=== PATIENT | female | born 1975 | race African-American/Black ===

== ENCOUNTER → 2020-02-04 | Outpatient (REF) | payer MEDICAID ==
[~2020-02-04] MED LIST: DOCU5LIQ PO; OXYC1TAB23 AD; OXYC1TAB23 PO; OXYC30TA4 PO; PERC5TAB8 OR; SENO8.6T9 PO; VICO5TAB OR
[2020-02-05 14:07] LABS: HE4 55.8 pmol/L (0.0-63.6)
== END ==
LOC: M PLALAB 10:05
PROVIDERS: ATTEND Obstetrics & Gynecology
DX: N83.201 Unspecified ovarian cyst, right side (principal)

== ENCOUNTER → 2020-02-07 | Outpatient (CLI) | payer MEDICAID ==
--- NOTE | 2020-02-07 10:27 | REP ---
REASON: Possible right-sided ovarian cyst. The latest prior for comparison is in 05/02/2014. Transvesical and transvaginal imaging was performed. The uterus measures 9.1 x 4.4 x 4.6 cm. The parenchymal echo pattern is unchanged from the prior exam. The endometrial echo complex is within normal limits with a maximal thickness of 6 mm. There is small amount of fluid in the endometrial cavity. The right ovary measures 3.4 x 2.4 x 2.8 cm. In the right adnexa, there is a 7 x 7.1 x 8.1 cm sized complex cystic structure. The right ovarian RI is 0.79. Left ovary measures 2.1 x 1.3 x 1.8 cm and is within normal limits. There is a moderate amount of free fluid from the cul-de-sac. IMPRESSION: There is a large complex cystic structure in the right adnexa. Followup with MRI is suggested.
== END ==
LOC: M WHC 08:25
PROVIDERS: ATTEND Obstetrics & Gynecology
DX: N83.201 Unspecified ovarian cyst, right side (principal)

== ENCOUNTER → 2020-02-07 | Outpatient (CLI) | payer MEDICAID, OTHER ==
[~2020-02-07] MED LIST changes: +GASTROGRAFIN SOLUTION 30ML (Q9963) As Ordered ONE; +ISOVUE-370 76% 100ML VIAL As Ordered ONE
[2020-02-07 14:31] LABS: BLOOD UREA NITROGEN 12 MG/DL (7-18); GLOMERULAR FILTRATION RATE > 60.0 (>58)
[2020-02-07 14:38] LABS: HEMOGLOBIN 9.9 g/dl (12.0-15.5); MEAN CORPUSCULAR HEMOGLOBIN 24.3 pg (27.0-33.0); MEAN CORPUSCULAR VOLUME 81.1 fl (80.0-96.0); PLATELET COUNT, AUTOMATED 351 10^3/uL (150-450); RED BLOOD COUNT 4.07 10^6/uL (4.00-5.40); WHITE BLOOD COUNT 5.7 10^3/uL (4.0-10.0)
--- NOTE | 2020-02-07 23:02 | REP ---
CT ABDOMEN AND PELVIS WITH ORAL CONTRAST: CT abdomen and pelvis performed following oral contrast administration. No IV contrast was administered. Sagittal and coronal reconstruction images are performed. Comparison made with prior study of 08/30/2012. The visualized lung bases are clear. The liver is grossly unremarkable. A subcentimeter gallstone is seen in the dependent portion of the gallbladder without evidence of gallbladder wall thickening or edema. Spleen is normal in size with no gross abnormality. Adrenal glands are normal. The pancreas is grossly unremarkable. A punctate intrarenal calculus is seen in the right kidney. Small extrarenal pelvis is noted on the right, unchanged since the prior CT exam. The kidneys are otherwise grossly unremarkable with no hydronephrosis. There is no abdominal aortic aneurysm. There is no adenopathy. There is no free air. I see no bowel wall thickening. Scattered diverticula are seen of the left colon. The appendix is normal. Postsurgical changes are seen in the anterior abdominal wall with no current evidence of abdominal wall hernia. In the pelvis, a large cyst is noted of the right ovary measuring 7.7 cm in diameter. There is mild adjacent free fluid. The left ovary is unremarkable. The uterus is deviated to the left of midline. The urinary bladder is mildly distended and grossly unremarkable. IMPRESSION: Subcentimeter gallstone in the gallbladder without gallbladder wall thickening. Punctate calculus right kidney. No hydronephrosis. Cystic structure right ovary 7.7 cm in maximum diameter with mild adjacent free fluid. Recommend pelvic ultrasound to further evaluate. Scattered diverticula of the left colon. No definite bowel inflammation or wall thickening. Postsurgical changes anterior abdominal wall with no current evidence of abdominal wall hernia. Electronically Signed by Ruben Sheth MD 02/08/2020 09:31 A
== END ==
LOC: M RAD 12:42
PROVIDERS: ATTEND Surgery
DX: R10.11 Right upper quadrant pain (principal); K92.2 Gastrointestinal hemorrhage, unspecified; R10.84 Generalized abdominal pain; K80.20 Calculus of gallbladder without cholecystitis without obstruction; N20.0 Calculus of kidney; K57.90 Diverticulosis of intestine, part unspecified, without perforation or abscess without bleeding; N83.201 Unspecified ovarian cyst, right side
CPT/HCPCS: 74176; 82565; 84520; 85027; Q9963; Q9967

== ENCOUNTER → 2020-04-16 | Outpatient (REF) | payer OTHER, MEDICAID ==
[~2020-04-16] MED LIST changes: +CLAR10CA3 PO; +DERM1TAB2 PO; -GASTROGRAFIN SOLUTION 30ML (Q9963) As Ordered ONE; -ISOVUE-370 76% 100ML VIAL As Ordered ONE; +METF850T4 PO; +OMEP40CA97 PO; +TOPI50TA9 PO
[2020-04-16 12:40] LABS: BASO % 0.4 % (0.0-1.0); EOS # 0.1 10^3/uL (0.0-0.5); EOS % 2.2 % (0.0-3.0); HEMATOCRIT 35.7 % (36.0-47.0); HEMOGLOBIN 10.4 g/dl (12.0-15.5); LYMPH # 2.6 10^3/uL (1.5-5.0); LYMPH % 49.3 % (24.0-44.0); MEAN CORPUSCULAR HEMOGLOBIN 24.7 pg (27.0-33.0); MEAN CORPUSCULAR HGB CONC 29.1 g/dl (32.0-36.5); MEAN CORPUSCULAR VOLUME 84.8 fl (80.0-96.0); MONO # 0.5 10^3/uL (0.0-0.8); MONO % 9.3 % (0.0-5.0); NEUTROPHILS # 2.1 10^3/uL (1.5-8.5); NEUTROPHILS % 38.6 % (36.0-66.0); PLATELET COUNT, AUTOMATED 333 10^3/uL (150-450); RED BLOOD COUNT 4.21 10^6/uL (4.00-5.40); WHITE BLOOD COUNT 5.4 10^3/uL (4.0-10.0)
[2020-04-16 12:42] LABS: ALBUMIN 3.5 GM/DL (3.2-5.2); BILIRUBIN,TOTAL 0.2 MG/DL (0.2-1.0); CALCIUM LEVEL 8.9 MG/DL (8.5-10.1); CHOLESTEROL RISK RATIO 3.264 (<5); CREATININE FOR GFR 1.3 MG/DL (0.55-1.30); FREE T4 1.1 NG/DL (0.76-1.46); GLOMERULAR FILTRATION RATE 47.8 (>58); POTASSIUM SERUM 3.9 MEQ/L (3.5-5.1); THYROID STIMULATING HORMONE 1.12 uIU/ML (0.358-3.740); TOTAL PROTEIN 7.5 GM/DL (6.4-8.2)
[2020-04-16 12:44] LABS: TOTAL 25(OH) VITAMIN D 24.5 NG/ML (30.0-100.0)
[2020-04-16 13:24] LABS: HEMOGLOBIN A1c 5.6 %
== END ==
LOC: M LAB REF 11:35
PROVIDERS: ATTEND Physician Assistant
DX: N83.209 Unspecified ovarian cyst, unspecified side (principal); Z86.2 Personal history of diseases of the blood and blood-forming organs and certain disorders involving the immune mechanism; E11.9 Type 2 diabetes mellitus without complications; E55.9 Vitamin D deficiency, unspecified; Z13.220 Encounter for screening for lipoid disorders; K43.2 Incisional hernia without obstruction or gangrene

== ENCOUNTER → 2020-04-17 | Outpatient (REF) | payer OTHER, MEDICAID ==
[2020-04-18 11:20] LABS: MAU/CREAT RATIO 33.2 MCG/MG (0.0-30.0)
== END ==
LOC: M LAB REF 10:08
PROVIDERS: ATTEND Physician Assistant
DX: E11.9 Type 2 diabetes mellitus without complications (principal); Z86.2 Personal history of diseases of the blood and blood-forming organs and certain disorders involving the immune mechanism; N83.209 Unspecified ovarian cyst, unspecified side; E55.9 Vitamin D deficiency, unspecified; Z13.220 Encounter for screening for lipoid disorders; K43.2 Incisional hernia without obstruction or gangrene

== ENCOUNTER 2020-05-23 10:55 | Day surgery (SDC) | payer MEDICAID ==
[~2020-05-23 10:55] MED LIST changes: +ceFAZolin 2 GM/D5W 50 ML IV BAG (J0690 PER 500MG) As Ordered ONE; +ceFAZolin 2 GM/D5W 50 ML IV BAG (J0690 PER 500MG) ONE
[2020-05-23] MEDS ORDERED: dexameTHASONE 4 MG/ML 1ML VIAL (J1100 PER 1MG) As Ordered ONE (14:17)
[2020-05-23] MEDS ORDERED: propofoL 200 MG/20 ML VIAL As Ordered ONE (14:17)
[2020-05-23] MEDS ORDERED: ONDANSETRON 4MG/2ML VIAL As Ordered ONE ×2 (14:17→18:48)
[2020-05-23] MEDS ORDERED: fentaNYL 250 MCG/5 ML INJECTION (J3010) As Ordered ONE (14:17)
[2020-05-23] MEDS ORDERED: ROCURONIUM BROMIDE 50 MG/5 ML VIAL As Ordered ONE ×2 (14:17→17:05)
[2020-05-23] MEDS ORDERED: MIDAZOLAM INJ 2MG/2ML VIAL (J2250 PER 1MG) As Ordered ONE (14:17)
[2020-05-23] MEDS ORDERED: LIDOCAINE 2% 100MG/5ML SDV (FOR ANES.) As Ordered ONE ×2 (14:21→15:35)
[2020-05-23] MEDS ORDERED: BUPIVACAINE HCL 0.25% 30ML VIAL As Ordered ONE (15:30)
[2020-05-23] MEDS ORDERED: KETOROLAC 60MG 2ML VIAL As Ordered ONE (18:10)
[2020-05-23] MEDS ORDERED: ACETAMINOPHEN 1000MG 100ML IV BTL (OFIRMEV) (J0131 PER 10MG) As Ordered ONE (18:10)
[2020-05-23] MEDS ORDERED: SUGAMMADEX SODIUM 500 MG/5 ML VIAL (BRIDION) As Ordered ONE (18:13)
[2020-05-23] MEDS ORDERED: HYDROMORPHONE HCL 0.5 MG/ 0.5 ML SYRINGE (J1170 PER 1) As Ordered ONE (18:47)
[2020-05-23] MEDS ORDERED: ONDANSETRON 4MG/2ML VIAL ONE (18:47)
[2020-05-23] MEDS ORDERED: HYDROMORPHONE HCL 0.5 MG/ 0.5 ML SYRINGE (J1170 PER 1) ONE (18:47)
[2020-05-23] MEDS ORDERED: fentaNYL 100 MCG/2 ML INJECTION (J3010) ONE (19:05)
[2020-05-23] MEDS ORDERED: fentaNYL 100 MCG/2 ML INJECTION (J3010) As Ordered ONE (19:05)
[2020-05-23] MEDS ORDERED: oxyCODONE 5MG TAB As Ordered ONE ×2 (19:20→19:46)
[2020-05-23] MEDS ORDERED: oxyCODONE 5MG TAB ONE ×2 (19:20→19:46)
[2020-05-23] MEDS ORDERED: MORPHINE 4 MG/ML 1ML VIAL/SYRINGE (J2270) As Ordered ONE (21:59)
[2020-05-23] MEDS ORDERED: PERCOCET 5MG/325MG TAB As Ordered ONE (23:55)
[2020-05-24] MEDS ORDERED: KETOROLAC 30 MG/ML 1ML VIAL As Ordered ONE ×2 (00:56→09:45)
[2020-05-24] MEDS ORDERED: PERCOCET 5MG/325MG TAB As Ordered ONE ×2 (03:51→09:45)
[2020-05-24] MEDS ORDERED: MORPHINE 4 MG/ML 1ML VIAL/SYRINGE (J2270) As Ordered ONE (06:39)
--- NOTE | 2020-07-17 10:53 | RO ---
DATE OF PROCEDURE: 05/23/2020 PREOPERATIVE DIAGNOSIS: Symptomatic right ovarian cyst. POSTOPERATIVE DIAGNOSIS: 1 Symptomatic right ovarian cyst. 2 Extensive intra-abdominal intraperitoneal adhesive disease PROCEDURE PERFORMED: 1. Aborted laparoscopic entry. 2. Exploratory laparotomy, mini laparotomy via mini Pfannenstiel incision. 3. Right ovarian cystectomy. 4. Extensive lysis of adhesions. SURGEON: Leonidas Salter MD INDIAN TRADER: Jorge Jefferson (Central role in tissue site exposure and assistance with ovarian cystectomy) ANESTHESIA: General endotracheal SPECIMEN SENT TO PATHOLOGY: Right ovarian cyst. ESTIMATED BLOOD LOSS: 100 ml FLUIDS REPLACED 1200 ml lactate Ringers DRAINS: Bajwa catheter. URINE OUTPUT: 250 ml COMPLICATIONS: None. PREOPERATIVE ANTIBIOTICS: Ancef 2 gm IV times one secondary school registrar to the OR. INDICATIONS: The patient is complaining of persistent right lower quadrant pain. She has had a persistent large right ovarian cyst for several months. She is seeking surgical treatment. She is aware of the surgical risks given her surgical history. The patient was counseled and consented on the risks, benefits, indications and alternatives of procedure and informed consent was obtained. She was taken to the operating room with an IV running and placed on the operating table in the dorsal supine position. General anesthesia was administered and the airway secured without any difficulty. She was then placed in the low lithotomy position. She was prepared and draped in the normal sterile fashion. A time- out was performed for protocol. Bajwa catheter was placed under sterile conditions. A sterile speculum was placed for good visualization of the cervix. The anterior lip of the cervix was grasp with single-tooth tenaculum and downward traction was applied. The cervix was then sequentially dilated using dilators up to #20. The uterine manipulator was then placed without any difficulty. The single-tooth tenaculum was removed. A glove search was performed and attention was turned to abdomen. An umbilical incision was made with the 11 blade. The Veress needle was placed through this incision. Difficulty was obtained maintaining an adequate opening pressure and opening pressure was high. Upon entry of the Veress needle, there was an easy flow of normal saline, a positive drop test and negative return on aspiration. However, with insufflation, the pressures only stayed below 10 mmHg for a matter of seconds. The Veress needle was removed. The abdomen did seem tympanic and so attempt at entry into the intraabdominal cavity with the laparoscopic cannula/trocar was attempted. However, upon entry into the abdomen, extensive adhesions were noted. No injury to bowel or major vessels was apparent, but my vision of the pelvis was significantly impaired given the omental adhesions. Therefore, the trocar was removed. Attempts were made in the left upper quadrant at [facility] in similar fashion, Veress needle was placed with positive checks to confirm intraperitoneal placement. The insufflation had an opening pressure of less than 10. The Veress needle was removed. The laparoscopic cannula/trocar was inserted under direct visualization into the intraperitoneal cavity and again also encountered extensive amount of adhesive disease. With the left upper quadrant entry, there was no apparent bowel injury or major vessel injury and the cannula was noted to be very shallow within the peritoneal cavity. Given the lack of visualization of the pelvis, the cannula was removed. The final attempt was made just below the right upper quadrant. The Veress needle was placed. Proper checks were performed and confirmed intraperitoneal placement, the opening pressure was less than 10. The Veress needle was removed. The cannula was inserted through this incision for one final attempt at achieving laparoscopic entry and the same difficulties were encountered. I could not see pass the omental adhesions. Given that an extensive amount of adhesiolysis would have to be performed laparoscopically, I decided to abort laparoscopic attempt and notify the OR staff. The cannula was removed. The gas was released from the abdomen. The 5 mm skin incisions were closed with 4-0 Monocryl in subcuticular fashion and re-enforced with Dermabond. Once the new counts were completed for the new instrument set, the procedure proceeded in the open fashion. A mini Pfannenstiel incision was made with a 10 blade. This was dissected down to the level of the rectus sheath fascia. The rectus sheath fascia was incised at the midline and the rectus sheath fascia was dissected with Patel scissors on each side. The Elisabeth clamps were used to grasp the superior aspect of the fascial incision and upper traction was applied and the rectus muscle bellies were dissected off the fascia. In similar fashion, the inferior aspect of the fascial incision was grasped with Elisabeth clamps and elevated. The fascia was dissected off the muscle belly. The peritoneum was identified. However, extensive amount of bowel adhesions were noted to the anterior abdominal wall. However, I was able to bluntly dissect my way down to the pelvis to identify the right ovarian cyst. The right ovaria cyst was well demarcated, smooth walled with very filmy adhesions around the side wall at the bowel and the uterus. Once this right ovarian cyst was mobilized, it was brought to the opening of the incision. The Metzenbaum scissors were used to dissect off the cyst wall off the ovary. The remaining ovary was noted to be hemostatic. The right fallopian tube was noted to be bleeding. It was clamped and suture ligated to assure hemostasis. No other bleeding was noted. In the process of dissecting the ovarian cyst off of the ovary, there was a large feeding vessel from the peritoneum. This was also clamped and suture ligated. It was unclear where the origin of this vessel was from, but I assume it was an aberrant branch from the ovarian vessels, most likely off the IP ligament. The right ureter was noted to be well away from this area. The entire pelvis was suctioned irrigated. Actually hemostasis was noted. The decision was made to conclude the procedure. The sponge, needle and instrument counts were correct. The fascia was then closed with 0 Vicryl in running fashion. Subcutaneous layer was irrigated and then re- approximated with 3-0 Vicryl in running fashion. The skin incision was closed with 4-0 Monocryl in subcuticular fashion and Optifoam dressing was placed over this incision. The attention was turned back to the pelvis and the Bajwa catheter was removed. The uterine manipulator was removed. Minimal vaginal bleeding was noted. Sponge, needle and instrument counts were correct once again and the patient tolerated the entire procedure very well. She was transferred to PACU in good and stable condition. RICK
[2020-07-20 08:34] LABS: HEMATOCRIT 37.1 % (36.0-47.0); HEMOGLOBIN 10.9 g/dl (12.0-15.5); MEAN CORPUSCULAR HEMOGLOBIN 24.8 pg (27.0-33.0); MEAN CORPUSCULAR HGB CONC 29.4 g/dl (32.0-36.5); MEAN CORPUSCULAR VOLUME 84.5 fl (80.0-96.0); PLATELET COUNT, AUTOMATED 294 10^3/uL (150-450); RED BLOOD COUNT 4.39 10^6/uL (4.00-5.40); WHITE BLOOD COUNT 4.7 10^3/uL (4.0-10.0)
== END 2020-05-24 10:30 | disposition home or self-care (01) ==
LOC: M SDC 10:55
PROVIDERS: ATTEND Obstetrics & Gynecology
DX: N83.291 Other ovarian cyst, right side (principal); Z53.31 Laparoscopic surgical procedure converted to open procedure; K66.0 Peritoneal adhesions (postprocedural) (postinfection); E11.9 Type 2 diabetes mellitus without complications; K21.9 Gastro-esophageal reflux disease without esophagitis; G43.909 Migraine, unspecified, not intractable, without status migrainosus; Z79.84 Long term (current) use of oral hypoglycemic drugs; Z79.899 Other long term (current) drug therapy
CPT/HCPCS: 58925; 84703; 85027; 86850; 86900; 86901; 88305; J0131; J0690; J1100; J1170; J1885; J2250; J2270; J2405; J3010

== ENCOUNTER → 2020-06-18 | Outpatient (CLI) | payer OTHER, MEDICAID ==
[~2020-06-18] MED LIST changes: -ceFAZolin 2 GM/D5W 50 ML IV BAG (J0690 PER 500MG) As Ordered ONE; -ceFAZolin 2 GM/D5W 50 ML IV BAG (J0690 PER 500MG) ONE
== END ==
LOC: M PAIN 09:31
PROVIDERS: ATTEND Nurse Practitioner Family
DX: R10.9 Unspecified abdominal pain (principal)

== ENCOUNTER → 2020-07-23 | Outpatient (REF) | payer OTHER, MEDICAID ==
[2020-07-23 17:31] LABS: HEMOGLOBIN A1c 5.9 %
== END ==
LOC: M LAB REF 16:25
PROVIDERS: ATTEND Physician Assistant
DX: N18.30 Chronic kidney disease, stage 3 unspecified (principal); Z86.2 Personal history of diseases of the blood and blood-forming organs and certain disorders involving the immune mechanism; E11.9 Type 2 diabetes mellitus without complications

== ENCOUNTER → 2020-07-29 | Outpatient (REF) | payer OTHER, MEDICAID ==
[2020-07-29 17:44] LABS: BLOOD UREA NITROGEN 11 MG/DL (7-18); CALCIUM LEVEL 8.8 MG/DL (8.5-10.1); CARBON DIOXIDE LEVEL 28 MEQ/L (21-32); CHLORIDE LEVEL 107 MEQ/L (98-107); CREATININE FOR GFR 1.17 MG/DL (0.55-1.30); GLOMERULAR FILTRATION RATE > 60.0 (>58); GLUCOSE, FASTING 93 MG/DL (70-100); POTASSIUM SERUM 4.4 MEQ/L (3.5-5.1); SODIUM LEVEL 141 MEQ/L (136-145)
== END ==
LOC: M LAB REF 16:28
PROVIDERS: ATTEND Physician Assistant
DX: N18.30 Chronic kidney disease, stage 3 unspecified (principal)

== ENCOUNTER → 2020-08-08 | Outpatient (CLI) | payer OTHER ==
--- NOTE | 2020-08-08 11:01 | REP ---
INDICATION: R10.2 PELVIC AND PERINEAL PAIN. COMPARISON: Comparison pelvic sonography February 07, 2020.. TECHNIQUE: Transabdominal and transvaginal scanning were performed. FINDINGS: Uterine dimensions are normal at 9.2 by 5.2 x 5.6 cm. Endometrial echo is 1.2 cm thick and centrally placed. A mild amount free fluid is seen in the cul-de-sac. Visualized bladder helms are smooth. The right ovary has dimensions of 3.5 x 1.9 x 2.3 cm. It's Doppler flow is normal with a resistive index of 0.53. There are 2 small follicle cysts in the right ovary measuring 1.1 and 1.8 cm in greatest diameter respectively. The left ovary dimensions are normal as well at 2.7 x 1.5 x 1.6 cm. It's Doppler flow was normal with resistive index of 0.41. IMPRESSION: There is free fluid in the cul-de-sac and right adnexal region. Otherwise negative pelvic sonography.. <Electronically signed by Baljeet Armstrong > 08/08/20 [id number]
== END ==
LOC: M WHC 09:03
PROVIDERS: ATTEND Obstetrics & Gynecology
DX: R10.2 Pelvic and perineal pain (principal)

== ENCOUNTER → 2020-08-18 | Outpatient (CLI) | payer OTHER ==
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
== END ==
LOC: M PAIN 09:15
PROVIDERS: ATTEND Nurse Practitioner Family
DX: D36.15 Benign neoplasm of peripheral nerves and autonomic nervous system of abdomen (principal); E11.9 Type 2 diabetes mellitus without complications; K21.9 Gastro-esophageal reflux disease without esophagitis; Z79.84 Long term (current) use of oral hypoglycemic drugs; Z79.899 Other long term (current) drug therapy; J30.2 Other seasonal allergic rhinitis

== ENCOUNTER → 2020-09-06 | Outpatient (CLI) | payer OTHER | LOC: M LABSMTC 09:27 | PROVIDERS: ATTEND Anesthesiology | DX: Z20.828 Contact with and (suspected) exposure to other viral communicable diseases (principal) ==

== ENCOUNTER → 2020-09-10 | Outpatient (CLI) | payer OTHER ==
[~2020-09-10] MED LIST changes: +BUPIVACAINE HCL 0.25% 10ML VIAL As Ordered ONE; +BUPIVACAINE HCL 0.25% 30ML VIAL As Ordered ONE; +TRIAMCINOLONE ACETONIDE SUSP 40 MG/ML VIAL (J3301) As Ordered ONE; +diazePAM 5MG TABLET As Ordered ONE; +oxyCODONE 5MG TAB As Ordered ONE
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
== END ==
LOC: M PAIN 14:00
PROVIDERS: ATTEND Anesthesiology
DX: D36.15 Benign neoplasm of peripheral nerves and autonomic nervous system of abdomen (principal); E11.9 Type 2 diabetes mellitus without complications; K21.9 Gastro-esophageal reflux disease without esophagitis; J30.9 Allergic rhinitis, unspecified; Z79.84 Long term (current) use of oral hypoglycemic drugs; Z79.899 Other long term (current) drug therapy
CPT/HCPCS: 11900; J3301

== ENCOUNTER → 2020-09-18 | Outpatient (REF) | payer OTHER ==
[~2020-09-18] MED LIST changes: -BUPIVACAINE HCL 0.25% 10ML VIAL As Ordered ONE; -BUPIVACAINE HCL 0.25% 30ML VIAL As Ordered ONE; -TRIAMCINOLONE ACETONIDE SUSP 40 MG/ML VIAL (J3301) As Ordered ONE; -diazePAM 5MG TABLET As Ordered ONE; -oxyCODONE 5MG TAB As Ordered ONE
[2020-09-18 16:29] LABS: CALCIUM LEVEL 9.1 MG/DL (8.5-10.1); CREATININE FOR GFR 1.36 MG/DL (0.55-1.30); GLOMERULAR FILTRATION RATE 45.2 (>58); POTASSIUM SERUM 4.4 MEQ/L (3.5-5.1)
== END ==
LOC: M LAB REF 15:34
PROVIDERS: ATTEND Physician Assistant
DX: I10 Essential (primary) hypertension (principal)

== ENCOUNTER → 2020-09-23 | Outpatient (CLI) | payer OTHER ==
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
== END ==
LOC: M PAIN 14:30
PROVIDERS: ATTEND Nurse Practitioner Family
DX: G89.29 Other chronic pain (principal); D36.15 Benign neoplasm of peripheral nerves and autonomic nervous system of abdomen; E11.9 Type 2 diabetes mellitus without complications; K21.9 Gastro-esophageal reflux disease without esophagitis; J30.2 Other seasonal allergic rhinitis; Z79.84 Long term (current) use of oral hypoglycemic drugs; Z79.899 Other long term (current) drug therapy

== ENCOUNTER → 2020-12-03 | Outpatient (REF) | payer OTHER ==
[2020-12-03 17:25] LABS: BASO % 0.1 % (0.0-1.0); HEMATOCRIT 33.7 % (36.0-47.0); HEMOGLOBIN 10.1 g/dl (12.0-15.5); LYMPH # 1.7 10^3/uL (1.5-5.0); LYMPH % 19.3 % (24.0-44.0); MEAN CORPUSCULAR HEMOGLOBIN 25.8 pg (27.0-33.0); MEAN CORPUSCULAR VOLUME 86.2 fl (80.0-96.0); MONO # 0.7 10^3/uL (0.0-0.8); MONO % 7.9 % (2.0-8.0); NEUTROPHILS # 6.4 10^3/uL (1.5-8.5); NEUTROPHILS % 72.2 % (36.0-66.0); PLATELET COUNT, AUTOMATED 314 10^3/uL (150-450); RED BLOOD COUNT 3.91 10^6/uL (4.00-5.40); WHITE BLOOD COUNT 8.8 10^3/uL (4.0-10.0)
[2020-12-03 17:52] LABS: ALBUMIN 3.4 GM/DL (3.2-5.2); BILIRUBIN,TOTAL 0.1 MG/DL (0.2-1.0); CHOLESTEROL RISK RATIO 2.426 (<5); CREATININE FOR GFR 1.74 MG/DL (0.55-1.30); THYROID STIMULATING HORMONE 0.232 uIU/ML (0.358-3.740); TOTAL PROTEIN 6.9 GM/DL (6.4-8.2)
[2020-12-03 17:53] LABS: TOTAL 25(OH) VITAMIN D 24.3 NG/ML (30.0-100.0)
[2020-12-03 19:19] LABS: HEMOGLOBIN A1c 5.8 %
== END ==
LOC: M LAB REF 16:03
PROVIDERS: ATTEND Physician Assistant
DX: R73.03 Prediabetes (principal); E66.9 Obesity, unspecified; N18.30 Chronic kidney disease, stage 3 unspecified; E55.9 Vitamin D deficiency, unspecified

== ENCOUNTER → 2020-12-04 | Outpatient (CLI) | payer OTHER ==
--- NOTE | 2020-12-09 00:58 | ECWPNPC ---
PATIENT NAME: JAIRO RYAN : 1975 GENDER: FEMALE VISIT DATE: 12/04/2020 DISCHARGE DATE: 12/04/20 1050 VISIT LOCKED DATE TIME: PHYSICIAN: JONAS KEMP RESOURCE: JONAS KEMP REASON FOR APPOINTMENT 1. ABDOMINAL SCAR NEUROMA/DID GOOD WITH FIRST SCAR NEUROMA INJECTION IN SEPTEMBER HISTORY OF PRESENT ILLNESS DEPRESSION SCREENING: PHQ-2 (2015 EDITION) LITTLE INTEREST OR PLEASURE IN DOING THINGS?NOT AT ALL FEELING DOWN, DEPRESSED, OR HOPELESS?NOT AT ALL TOTAL SCORE0 GENERAL: HERE FOR F/U OF ABDOMINAL PAIN/SCAR NEUROMA-.PAIN HAS RETURNED.RESPONDS WELL TO SCAR NEUROMA INJECTIONS. FALL RISK SCREENING: SCREENING :NO FALLS REPORTED IN THE LAST YEAR PAIN SCREENING: PATIENT HAS A COMPLAINT OF ACUTE OR CHRONIC PAIN :YES LOCATION OF PAIN:ABDOMEN INTENSITY OF PAIN (SCALE OF 1 TO 10):7 WHAT DOES YOUR PAIN FEEL LIKE:BURNING, SHARP DURATION:CONTINOUS, CONSTANT, ALL DAY PAIN IS INCREASED BY:ACTIVITIES PAIN IS DECREASED BY:SITTING NURSING NOTE: -. PAIN CENTER INTAKE QUESTIONS: DO YOU HAVE A HISTORY OF MRSA? :NO DO YOU TAKE A BLOOD THINNERS? :NO DO YOU HAVE ANY BLEEDING DISORDERS? :NO ANY NEW NUMBNESS OR WEAKNESS IN YOUR LEGS OR ARMS? :NO ANY PACEMAKER,DEFIBRILLATOR, OR DORSAL COLUMN STIMULATOR? :NO DO YOU HAVE ANY RASHES OR OPEN SORES? :NO ARE YOU ALLERGIC TO IV DYE? :NO ARE YOU DIABETIC? :YES ANY NEW PROBLEMS WITH YOUR MEDICATIONS? :NO HAVE YOU RECEIVED A VACCINE IN THE PAST 30 DAYS? :NO DO YOU PLAN TO RECEIVE A VACCINE IN THE NEXT 21 DAYS? :NO DO YOU NEED ANY PRESCRIPTION? :NO DO YOU TAKE ANY IMMUNOSUPPRESSIVE MEDICATIONS? :YES METHLPREDNISOLONE IS THERE A CHANCE YOU COULD BE ? :NO ARE YOU BREAST FEEDING? :NO CURRENT MEDICATIONS TAKING VITAMIN D (CHOLECALCIFEROL) 50 MCG (2000 UT) CAPSULE 02737 UNITS ORALLY ONCE A DAY TAKING METFORMIN HCL 850 MG TABLET 1 TABLET WITH A MEAL ORALLY TWICE A DAY TAKING PRILOSEC 10 MG PACKET 40MG ORALLY TAKING TOPAMAX 50 MG TABLET 1 TABLET ORALLY BID TAKING ZYRTEC ALLERGY 10 MG TABLET 1 TABLET ORALLY ONCE A DAY TAKING FAMOTIDINE 20 MG TABLET 1 TABLET AT BEDTIME NEEDED ORALLY TWICE A DAY TAKING METHYLPREDNISOLONE 4 MG TABLET 1 TABLET WITH FOOD OR MILK ORALLY EVERY 12 HRS NOT-TAKING LORATADINE 10 MG TABLET 20MG ORALLY ONCE A DAY NOT-TAKING IBUPROFEN 800 MG TABLET 1 TABLET WITH FOOD OR MILK NEEDED ORALLY THREE TIMES A DAY NOT-TAKING EXCEDRIN MIGRAINE 250-250-65 MG TABLET 1 TAB ORALLY PRN MEDICATION LIST REVIEWED AND RECONCILED WITH THE PATIENT PAST MEDICAL HISTORY DIABETES MELLITUS GERD ALLERGIES SEASONAL - ONSET DATE 02/04/2020 LISINOPRIL: FACE SAWLLOW SOCIAL HISTORY GENERAL: TOBACCO USE ARE YOU A:NONSMOKER LATEX QUESTIONNAIRE LATEX ALLERGY : HAVE YOU EVER DEVELOPED ANY TYPE OF REACTION AFTER HANDLING LATEX PRODUCTS SUCH RUBBER GLOVES, CONDOMS, DIAPHRAGMS, BALLOONS, SOCKS, OR UNDERWEAR?NO LATEX ALLERGY : HAVE YOU EVER DEVELOPED ANY TYPE OF REACTION DURING OR AFTER DENTAL APPOINTMENT, VAGINAL/RECTAL EXAMINATION, SURGICAL PROCEDURE, OR ANY OTHER EXPOSURE?NO LATEX RISK : HAVE YOU EVER HAD ANY DIFFICULTY BREATHING OR HIVES AFTER EATING OR HANDLING ANY FRUITS, OR VEGETABLES; SUCH KIWI, BANANAS, STONE FRUITS, OR CHESTNUTSNO LATEX RISK : DO YOU HAVE A PREVIOUS PERSONAL HISTORY OF MORE THAN NINE SURGERIES, SPINA BIFIDA, OR REPEATED CATHERIZATIONS? NO LATEX RISK : ARE YOU FREQUENTLY EXPOSED TO LATEX PRODUCTS IN YOUR OCCUPATION?NO DATE ASKED : 12/04/2020 ALCOHOL USE: NO. ALCOHOL SCREENING DID YOU HAVE A DRINK CONTAINING ALCOHOL IN THE PAST YEAR?NO POINTS0 INTERPRETATIONNEGATIVE RECREATIONAL DRUG USE DRUG USE?NO CAFFEINE CAFFEINE USE?YES HOW OFTEN AND HOW MUCH? 3/DAY SIKH SIKH NO FAITH BELIEFS THAT WOULD IMPACT HEALTH CARE. LANGUAGE LANGUAGES SPOKEN:MAORI LEARNING BARRIERS / SPECIAL NEEDS CHANGE FROM LAST VISIT?NO BARRIERS TO LEARNING?NO HEARING IMPAIRED?NO VISION IMPAIRED?NO COGNITIVELY IMPAIRED?NO READINESS TO LEARN?YES LEARNING PREFERENCES?NO LEARNING CAPABILITIES PRESENT?YES EMOTIONAL BARRIERS?NO SPECIAL DEVICES?NO CONTINUOUS MINING MACHINE OPERATOR NEEDED?NO - HAS THE PATIENT BEEN EDUCATED REGARDING HIS/HER PLAN OF CARE?YES HAS THE PATIENT BEEN EDUCATED REGARDING PAIN, THE RISK FOR PAIN, THE IMPORTANCE OF EFFECTIVE PAIN MANAGEMENT, AND THE PAIN ASSESSMENT PROCESS?YES ADVANCE DIRECTIVE ADVANCE DIRECTIVE DISCUSSED WITH PATIENT:YES SISTER-CHEIKH STEEN REVIEW OF SYSTEMS CONSTITUTIONAL: ANY RECENT FEVER NO . CHILLS NO . WEIGHT CHANGE OF UNKNOWN REASONS NO . GASTROENTEROLOGY: NEW UNEXPLAINABLE CHANGES IN BOWEL CONTROL NO . CONSTIPATION NO . GENITOURINARY: ANY NEW CHANGE IN BLADDER CONTROL? NO . NEUROLOGY: NEW ONSET DIZZINESS OR NEUROLOGICAL CHANGES NOT MENTIONED NO . NEW NUMBNESS OR PAIN PATTERNS NOT MENTIONED AND PERTINENT TO TODAY'S VISIT NO . CARDIOLOGY: NEW CHEST PRESSURE NO . PATIENT DENIES NO . RESPIRATORY: UNEXPLAINABLE COUGH NO . NEW SHORTNESS OF BREATH NO . VITAL SIGNS WT 222 LBS, HT 71 IN, BMI 30.96 INDEX, BP 179/105 MM HG, HR 62 /MIN, RR 18 /MIN, TEMP 97 F, OXYGEN SAT % 100%, SAFE IN ENV? (Y/N) YES, NA INITIALS OH 10:31T.KAYCEE PEREZ. EXAMINATION GENERAL EXAMINATION: GENERALNO ACUTE DISTRESS, WELL NOURISHED AND HYDRATED. PSYCHAPPROPRIATE MOOD AND AFFECT . LUNGS:CLEAR TO AUSCULTATION BILATERALLY, NO WHEEZES, RHONCHI, RALES. HEART:NO MURMURS, REGULAR RATE AND RHYTHM. ABDOMEN:BASICALLY TENDER WITH LIGHT PALPATION OVER ENTIRE ABDOMEN. CHIEF AREA OF PAIN IS MIDLINE INCISIONAL WITH LIGHT TOUCH. PATIENT COMPLAINS OF INTERMITTENT ELECTRICAL SENSATION WITH LIGHT TOUCH OVER ABDOMINAL MIDLINE INCISION.. 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 PROCEDURE CODES FA211 ESTABILISHED PATIENT [facility] FACILITY CHARGE DISPOSITION & COMMUNICATION FOLLOW UP POST PROCEDURE (REASON: SCAR NEUROMA INJECTIONS ABDOMEN) ELECTRONICALLY SIGNED BY XENA HELTON ON 12/08/2020 AT 01:36 PM EST DISCLAIMER : THIS IS A VISIT SUMMARY EXTRACTED FROM THE [email or web address] CHART. IT IS NOT A COPY OF THE [email or web address] PROGRESS NOTE. RICK
== END ==
LOC: M PAIN 10:00
PROVIDERS: ATTEND Nurse Practitioner Family
DX: D36.15 Benign neoplasm of peripheral nerves and autonomic nervous system of abdomen (principal); E11.9 Type 2 diabetes mellitus without complications; K21.9 Gastro-esophageal reflux disease without esophagitis; J30.2 Other seasonal allergic rhinitis; Z88.8 Allergy status to other drugs, medicaments and biological substances; Z79.84 Long term (current) use of oral hypoglycemic drugs; Z79.899 Other long term (current) drug therapy

== ENCOUNTER → 2020-12-06 | Outpatient (CLI) | payer OTHER | LOC: M LABSMTC 08:32 | PROVIDERS: ATTEND Anesthesiology | DX: Z11.52 Encounter for screening for COVID-19 (principal) ==

== ENCOUNTER → 2020-12-11 | Outpatient (CLI) | payer OTHER ==
[~2020-12-11] MED LIST changes: +BUPIVACAINE HCL 0.25% 30ML VIAL As Ordered ONE; +LIDOCAINE 1% SDV 30ML VIAL As Ordered ONE; +TRIAMCINOLONE ACETONIDE SUSP 40 MG/ML VIAL (J3301) As Ordered ONE; +diazePAM 5MG TABLET As Ordered ONE; +oxyCODONE 5MG TAB As Ordered ONE
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
== END ==
LOC: M PAIN 13:40
PROVIDERS: ATTEND Anesthesiology
DX: D36.15 Benign neoplasm of peripheral nerves and autonomic nervous system of abdomen (principal); E11.9 Type 2 diabetes mellitus without complications; K21.9 Gastro-esophageal reflux disease without esophagitis; J30.2 Other seasonal allergic rhinitis; Z79.899 Other long term (current) drug therapy; Z88.8 Allergy status to other drugs, medicaments and biological substances
CPT/HCPCS: 11900; J3301

== ENCOUNTER → 2021-02-13 | Outpatient (CLI) | payer OTHER ==
[~2021-02-13] MED LIST changes: -BUPIVACAINE HCL 0.25% 30ML VIAL As Ordered ONE; -LIDOCAINE 1% SDV 30ML VIAL As Ordered ONE; -TRIAMCINOLONE ACETONIDE SUSP 40 MG/ML VIAL (J3301) As Ordered ONE; -diazePAM 5MG TABLET As Ordered ONE; -oxyCODONE 5MG TAB As Ordered ONE
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
== END ==
LOC: M PAIN 14:00
PROVIDERS: ATTEND Anesthesiology
DX: R10.9 Unspecified abdominal pain (principal); G89.29 Other chronic pain; E11.9 Type 2 diabetes mellitus without complications; K21.9 Gastro-esophageal reflux disease without esophagitis; Z88.8 Allergy status to other drugs, medicaments and biological substances; Z79.84 Long term (current) use of oral hypoglycemic drugs; Z79.899 Other long term (current) drug therapy

== ENCOUNTER → 2021-03-03 | Outpatient (CLI) | payer OTHER ==
--- NOTE | 2021-03-03 16:54 | REPVR ---
PROCEDURE INFORMATION: Exam: MR Cervical Spine Without Contrast Exam date and time: 03/03/2021 4:33 PM Age: 45 years old Clinical indication: Neck pain; Additional info: Chronic pain TECHNIQUE: Imaging protocol: Multiplanar magnetic resonance images of the cervical spine without contrast. COMPARISON: No relevant prior studies available. FINDINGS: Straightening of the cervical lordosis. Cervical vertebral body heights are intact. The dens is intact. Disc space heights are unremarkable. No abnormal marrow signal. No cord compression, expansion, or abnormal cord signal. Visualized structures of the posterior fossa are unremarkable. No significant areas of canal or foraminal narrowing. Soft tissues are unremarkable. IMPRESSION: No acute findings in the cervical spine. Electronically signed by: Iker Nielsen On 03/03/2021 16:54:41 PM
--- NOTE | 2021-03-03 16:56 | REPVR ---
PROCEDURE INFORMATION: Exam: MR Thoracic Spine Without Contrast Exam date and time: 03/03/2021 4:33 PM Age: 45 years old Clinical indication: Pain in thoracic spine; Other: Not specified; Additional info: Chronic pain TECHNIQUE: Imaging protocol: Multiplanar magnetic resonance images of the thoracic spine without contrast. COMPARISON: No relevant prior studies available. FINDINGS: Thoracic vertebral body heights are maintained. No abnormal marrow signal. Thoracic kyphosis is preserved. Thoracic disc space heights are normal. Mild facet hypertrophy at T10-T11 contributes to mild canal narrowing. No severe areas of canal narrowing. No evidence of cord compression or abnormal cord signal. Soft tissues are unremarkable. IMPRESSION: No acute findings in the thoracic spine. Electronically signed by: Iker Nielsen On 03/03/2021 16:56:20 PM
--- NOTE | 2021-03-03 16:59 | REPVR ---
PROCEDURE INFORMATION: Exam: MR Lumbar Spine Without Contrast Exam date and time: 03/03/2021 4:33 PM Age: 45 years old Clinical indication: Low back pain; Additional info: Chronic pain TECHNIQUE: Imaging protocol: Multiplanar magnetic resonance images of the lumbar spine without intravenous contrast. COMPARISON: No relevant prior studies available. FINDINGS: Limitations: Examination is limited by motion artifact. Vertebral body heights are maintained. No abnormal marrow signal. No cord compression. No abnormal cord signal. Conus medullaris terminates at the L1 level. Mild degenerative disc height loss at L4-L5 and L5-S1. Remaining disc space heights are preserved. Paravertebral soft tissues are unremarkable. L1-L2: Facet hypertrophy causes mild canal narrowing and mild bilateral foraminal narrowing. L2-L3: No significant canal or foraminal narrowing. L3-L4: No significant canal or foraminal narrowing. L4-L5: Minimal broad-based disc bulge and facet hypertrophy cause mild canal narrowing with moderate left and mild right foraminal narrowing. L5-S1: Broad-based disc bulge and facet hypertrophy cause mild canal narrowing with moderate right and moderate to severe left foraminal narrowing. Possible impingement upon the exiting left L5 nerve root. IMPRESSION: Multilevel spondylotic changes of the lumbar spine, most pronounced at L5-S1, as detailed above. Electronically signed by: Iker Nielsen On 03/03/2021 16:59:25 PM
== END ==
LOC: M PLARAD 14:07
PROVIDERS: ATTEND Anesthesiology
DX: G89.29 Other chronic pain (principal); M47.817 Spondylosis without myelopathy or radiculopathy, lumbosacral region

== ENCOUNTER → 2021-04-03 | Outpatient (CLI) | payer OTHER ==
[~2021-04-03] MED LIST changes: +OMEP40CA4 PO; -OMEP40CA97 PO
--- NOTE | 2021-04-08 02:12 | ECWPNPC ---
PATIENT NAME: JAIRO RYAN : 1975 GENDER: FEMALE VISIT DATE: 04/03/2021 DISCHARGE DATE: 04/03/21 1521 VISIT LOCKED DATE TIME: PHYSICIAN: JONAS KEMP RESOURCE: JONAS KEMP REASON FOR APPOINTMENT 1. 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 CURRENTLY BEING WORKED UP FOR DORSAL COLUMN STIMULATOR TRIAL. CONTINUES TO HAVE SEVERE 24-HOUR ABDOMINAL PAIN THAT RADIATES INTO THE BACK REGION. 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 DISCUSSED MEDICATION OPTIONS. DISCUSSED USING PERCOCET 5/325 THAT SHE HAS BEEN ON IN THE PAST THAT HAS BEEN HELPFUL WITHOUT SIDE EFFECTS. SHE IS AWARE THAT SHE WOULD NOT BE ABLE TO TAKE THIS EVERY DAY OR ON A SCHEDULED BASIS. WE DISCUSSED THE REASONS WHY WE ARE NOT RECOMMENDING NARCOTIC BE TAKEN THIS WAY TO INCLUDE TOLERANCE AND DEPENDENCY. WE ALSO DISCUSSED AT LENGTH THE RISKS ASSOCIATED WITH NARCOTIC PAIN MEDICATION USE. SHE IS ADVISED THAT SHE WOULD NOT BE ABLE TO DRIVE OR OPERATE HEAVY EQUIPMENT AFTER TAKING A NARCOTIC PAIN MEDICATION. SHE IS AWARE THAT WE ARE PRESCRIBING THIS FOR HER TO TAKE PERIODICALLY ONCE SHE IS HOME POSSIBLY AFTER WORK OR HEAVY ACTIVITY FOR SEVERE PAIN EPISODES ONLY. -. FALL RISK SCREENING: SCREENING : NO FALLS REPORTED IN THE LAST YEAR. PAIN SCREENING: PATIENT HAS A COMPLAINT OF ACUTE OR CHRONIC PAIN :YES LOCATION OF PAIN:ABDOMEN INTENSITY OF PAIN (SCALE OF 1 TO 10):8 WHAT DOES YOUR PAIN FEEL LIKE:BURNING, SHARP DURATION:CONTINOUS, CONSTANT, ALL DAY PAIN IS INCREASED BY:ACTIVITIES, PROLONGED STANDING, OTHERS EVERTHING PAIN IS DECREASED BY:USE OF PAIN MEDICATIONS, SITTING NURSING NOTE: -. PAIN CENTER INTAKE QUESTIONS: DO YOU HAVE A HISTORY OF MRSA? :NO DO YOU TAKE A BLOOD THINNERS? :NO DO YOU HAVE ANY BLEEDING DISORDERS? :NO ANY NEW NUMBNESS OR WEAKNESS IN YOUR LEGS OR ARMS? :NO ANY PACEMAKER,DEFIBRILLATOR, OR DORSAL COLUMN STIMULATOR? :NO DO YOU HAVE ANY RASHES OR OPEN SORES? :NO ARE YOU ALLERGIC TO IV DYE? :NO ARE YOU DIABETIC? :YES ANY NEW PROBLEMS WITH YOUR MEDICATIONS? :NO HAVE YOU RECEIVED A VACCINE IN THE PAST 30 DAYS? :NO DO YOU PLAN TO RECEIVE A VACCINE IN THE NEXT 21 DAYS? :NO DO YOU NEED ANY PRESCRIPTION? :NO DO YOU TAKE ANY IMMUNOSUPPRESSIVE MEDICATIONS? :NO IS THERE A CHANCE YOU COULD BE ? :NO ARE YOU BREAST FEEDING? :NO CURRENT MEDICATIONS TAKING VITAMIN D (CHOLECALCIFEROL) 50 MCG (1999 UT) CAPSULE 05952 UNITS ORALLY ONCE A DAY TAKING TOPAMAX 50 MG TABLET 1 TABLET ORALLY BID TAKING ZYRTEC ALLERGY 10 MG TABLET 1 TABLET ORALLY ONCE A DAY TAKING PRILOSEC OTC 20 MG TABLET DELAYED RELEASE AL ORALLY TWICE DAILY TAKING NORVASC 5MG TABLET ORAL DAILY TAKING METFORMIN HCL 850 MG TABLET 1 TABLET WITH A MEAL ORALLY TWICE A DAY, NOTES: 800 MG BID NOT-TAKING PRILOSEC 10 MG PACKET 40MG ORALLY NOT-TAKING FAMOTIDINE 20 MG TABLET 1 TABLET AT BEDTIME NEEDED ORALLY TWICE A DAY NOT-TAKING METHYLPREDNISOLONE 4 MG TABLET 1 TABLET WITH FOOD OR MILK ORALLY EVERY 12 HRS NOT-TAKING LORATADINE 10 MG TABLET 20MG ORALLY ONCE A DAY NOT-TAKING IBUPROFEN 800 MG TABLET 1 TABLET WITH FOOD OR MILK NEEDED ORALLY THREE TIMES A DAY NOT-TAKING EXCEDRIN MIGRAINE 250-250-65 MG TABLET 1 TAB ORALLY PRN MEDICATION LIST REVIEWED AND RECONCILED WITH THE PATIENT PAST MEDICAL HISTORY DIABETES MELLITUS GERD CHRONIC PAIN ALLERGIES SEASONAL - ONSET DATE 02/04/2020 LISINOPRIL: FACE SAWLLOW SOCIAL HISTORY GENERAL: TOBACCO USE ARE YOU A:NONSMOKER LATEX QUESTIONNAIRE LATEX ALLERGY : HAVE YOU EVER DEVELOPED ANY TYPE OF REACTION AFTER HANDLING LATEX PRODUCTS SUCH RUBBER GLOVES, CONDOMS, DIAPHRAGMS, BALLOONS, SOCKS, OR UNDERWEAR?NO LATEX ALLERGY : HAVE YOU EVER DEVELOPED ANY TYPE OF REACTION DURING OR AFTER DENTAL APPOINTMENT, VAGINAL/RECTAL EXAMINATION, SURGICAL PROCEDURE, OR ANY OTHER EXPOSURE?NO LATEX RISK : HAVE YOU EVER HAD ANY DIFFICULTY BREATHING OR HIVES AFTER EATING OR HANDLING ANY FRUITS, OR VEGETABLES; SUCH KIWI, BANANAS, STONE FRUITS, OR CHESTNUTSNO LATEX RISK : DO YOU HAVE A PREVIOUS PERSONAL HISTORY OF MORE THAN NINE SURGERIES, SPINA BIFIDA, OR REPEATED CATHERIZATIONS? NO LATEX RISK : ARE YOU FREQUENTLY EXPOSED TO LATEX PRODUCTS IN YOUR OCCUPATION?NO DATE ASKED : 04/03/2021 ALCOHOL USE: NO. ALCOHOL SCREENING DID YOU HAVE A DRINK CONTAINING ALCOHOL IN THE PAST YEAR?NO POINTS0 INTERPRETATIONNEGATIVE RECREATIONAL DRUG USE DRUG USE?NO CAFFEINE CAFFEINE USE?YES HOW OFTEN AND HOW MUCH? 3/DAY CHRISTIANITY CHRISTIANITY NO NONDENOMINATIONAL BELIEFS THAT WOULD IMPACT HEALTH CARE. LANGUAGE LANGUAGES SPOKEN:AMHARIC LEARNING BARRIERS / SPECIAL NEEDS CHANGE FROM LAST VISIT?NO BARRIERS TO LEARNING?NO HEARING IMPAIRED?NO VISION IMPAIRED?NO COGNITIVELY IMPAIRED?NO READINESS TO LEARN?YES LEARNING PREFERENCES?NO LEARNING CAPABILITIES PRESENT?YES EMOTIONAL BARRIERS?NO SPECIAL DEVICES?NO ENGINEERING DESIGNER NEEDED?NO - HAS THE PATIENT BEEN EDUCATED REGARDING HIS/HER PLAN OF CARE?YES HAS THE PATIENT BEEN EDUCATED REGARDING PAIN, THE RISK FOR PAIN, THE IMPORTANCE OF EFFECTIVE PAIN MANAGEMENT, AND THE PAIN ASSESSMENT PROCESS?YES ADVANCE DIRECTIVE ADVANCE DIRECTIVE DISCUSSED WITH PATIENT:YES SISTER-CHEIKH STEEN REVIEW OF SYSTEMS CONSTITUTIONAL: ANY RECENT FEVER NO . CHILLS NO . WEIGHT CHANGE OF UNKNOWN REASONS NO . GASTROENTEROLOGY: NEW UNEXPLAINABLE CHANGES IN BOWEL CONTROL NO . CONSTIPATION NO . GENITOURINARY: ANY NEW CHANGE IN BLADDER CONTROL? NO . NEUROLOGY: NEW ONSET DIZZINESS OR NEUROLOGICAL CHANGES NOT MENTIONED NO . NEW NUMBNESS OR PAIN PATTERNS NOT MENTIONED AND PERTINENT TO TODAY'S VISIT NO . CARDIOLOGY: NEW CHEST PRESSURE NO . PATIENT DENIES NO . RESPIRATORY: UNEXPLAINABLE COUGH NO . NEW SHORTNESS OF BREATH NO . VITAL SIGNS WT 212.6 LBS, HT 71 IN, BMI 29.65 INDEX, BP 160/105 MM HG, REPEAT BP 141/93 MM HG, HR 95 /MIN, RR 18 /MIN, TEMP 98.0 F, OXYGEN SAT % 100%, NA INITIALS SC 14:37MA IS GOING TO RECHECK PT'S BP.LALO PEREZ. EXAMINATION GENERAL EXAMINATION: GENERALNO ACUTE DISTRESS, WELL NOURISHED AND HYDRATED. PSYCHAPPROPRIATE MOOD AND AFFECT . LUNGS:CLEAR TO AUSCULTATION BILATERALLY, NO WHEEZES, RHONCHI, RALES. HEART:NO MURMURS, REGULAR RATE AND RHYTHM. ABDOMEN:BASICALLY TENDER WITH LIGHT PALPATION OVER ENTIRE ABDOMEN. CHIEF AREA OF PAIN IS MIDLINE INCISIONAL WITH LIGHT TOUCH. PATIENT COMPLAINS OF INTERMITTENT ELECTRICAL SENSATION WITH LIGHT TOUCH OVER ABDOMINAL MIDLINE INCISION.. 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 , RISKS OF NARCOTIC/OPIOD MEDICATIONS INCLUDES BUT IS NOT LIMITED TO RISK OF DEPENDANCE/DEVELOPMENT OF ADDICTION, MOOD DISTURBANCE AND DEPRESSION, OSTEOPOROSIS, HORMONAL AND LABIDAL CHANGES, RESPIRATORY DEPRESSION AND . PATIENT IS ADVISED NOT TO DRIVE OR DRINK ALCOHOL WHILE ON THESE MEDICATIONS , [facility] NARCOTIC AGREEMENT WAS REVIEWED AND SIGNED TODAY BY THE PATIENT. SEE ATTACHED DOCUMENT FOR FULL DETAILS; SPECIFIC ISSUES WERE REVIEWED: 1) KEEP PAIN MEDS IN THEIR ORIGINAL BOTTLES AND ANY WEEKLY PLANNERS ARE TO BE BROUGHT TO THE PAIN CENTER AT EVERY VISIT. 2) THE PATIENT IS NOT TO INCREASE DOSING OR TIMING OF THEIR PAIN MEDICATION WITHOUT SPECIFIC DIRECTION OF THEIR PAIN CENTERPROVIDER (NOT ER OR OTHER PROVIDERS). 3) ALL PAIN MEDS ARE TO BE KEPT SECURED, IN A LOCKED BOX. 4) NO PAIN MEDS ARE TO BE SHARED WITH ANY OTHER PERSON FOR ANY REASON. 5) NO PAIN MEDS MAY BE TAKEN FROM ANY FRIENDS OR RELATIVES FOR ANY REASON 6) NO MEDS OR SUBSTANCES WHICH ARE NOT LEGAL ARE TO BE USED- NO MARIJUANA, NO COCAINE, AMPHETAMINES, HEROIN, OR OTHERS ARE EVER TO BE USED. 7)URINE TESTING IS DONE TO ACCOUNT FOR MEDS AND SUBSTANCES BEING TAKEN AND WILL BE DONE RANDOMLY. PROCEDURE CODES FA211 ESTABILISHED PATIENT [facility] FACILITY CHARGE DISPOSITION & COMMUNICATION FOLLOW UP 2 MONTHS (REASON: MED MGMNT/UTOX) ELECTRONICALLY SIGNED BY XENA HELTON ON 04/07/2021 AT 10:01 AM EDT DISCLAIMER : THIS IS A VISIT SUMMARY EXTRACTED FROM THE [employer] CHART. IT IS NOT A COPY OF THE [employer] PROGRESS NOTE. RICK
== END ==
LOC: M PAIN 14:30
PROVIDERS: ATTEND Nurse Practitioner Family
DX: D36.15 Benign neoplasm of peripheral nerves and autonomic nervous system of abdomen (principal); E11.9 Type 2 diabetes mellitus without complications; K21.9 Gastro-esophageal reflux disease without esophagitis; J30.2 Other seasonal allergic rhinitis; G89.29 Other chronic pain; Z79.84 Long term (current) use of oral hypoglycemic drugs; Z79.899 Other long term (current) drug therapy; Z88.8 Allergy status to other drugs, medicaments and biological substances

== ENCOUNTER → 2021-04-17 | Outpatient (CLI) | payer OTHER ==
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
== END ==
LOC: M PAIN 14:00
PROVIDERS: ATTEND Anesthesiology
DX: D36.15 Benign neoplasm of peripheral nerves and autonomic nervous system of abdomen (principal); R10.9 Unspecified abdominal pain; G89.29 Other chronic pain; K21.9 Gastro-esophageal reflux disease without esophagitis; Z88.8 Allergy status to other drugs, medicaments and biological substances; Z79.891 Long term (current) use of opiate analgesic; Z79.899 Other long term (current) drug therapy

== ENCOUNTER → 2021-05-14 | Outpatient (CLI) | payer OTHER | LOC: M PAIN 13:00 | PROVIDERS: ATTEND Nurse Practitioner Family | DX: Z53.21 Procedure and treatment not carried out due to patient leaving prior to being seen by health care provider (principal) ==

== ENCOUNTER → 2021-05-15 | Outpatient (CLI) | payer OTHER ==
--- NOTE | 2021-05-21 03:34 | ECWPNPC ---
PATIENT NAME: JAIRO RYAN : 1975 GENDER: FEMALE VISIT DATE: 05/15/2021 DISCHARGE DATE: 05/15/21710 VISIT LOCKED DATE TIME: PHYSICIAN: SALMA GONZALEZ MD RESOURCE: SALMA GONZALEZ MD REASON FOR APPOINTMENT 1. DISCUSS DCS HISTORY OF PRESENT ILLNESS GENERAL: PERMISSION FROM PATIENT WAS RECEIVED TO DO TELEPHONE OFFICE VISIT. 45-YEAR-OLD FEMALE PATIENT WITH A HISTORY OF ABDOMINAL PAIN. THE PATIENT DESCRIBES THE PAIN CONTINUOUS AND SHARP WITH A PAIN SCORE RANGING FROM 6-10/10. WE ARE IN THE PROCESS OF WORKING HER UP FOR A SPINAL COLUMN STIMULATOR TRIAL. SHE HAS TRIED INJECTION THERAPY AND MEDICATION BUT THE PAIN PERSISTS. FALL RISK SCREENING: SCREENING : NO FALLS REPORTED IN THE LAST YEAR. PAIN SCREENING: PATIENT HAS A COMPLAINT OF ACUTE OR CHRONIC PAIN :YES LOCATION OF PAIN:ABDOMEN, MID BACK, LOW BACK INTENSITY OF PAIN (SCALE OF 1 TO 10):7 WHAT DOES YOUR PAIN FEEL LIKE:CONTINOUS, SHARP DURATION:CONTINOUS, CONSTANT, ALL DAY PAIN IS INCREASED BY:ACTIVITIES, PROLONGED STANDING, OTHERS LAYING CERTAIN WAYS PAIN IS DECREASED BY:USE OF PAIN MEDICATIONS, OTHERS HEATING PAD NURSING NOTE: -. PAIN CENTER INTAKE QUESTIONS: DO YOU HAVE A HISTORY OF MRSA? :NO DO YOU TAKE A BLOOD THINNERS? :NO DO YOU HAVE ANY BLEEDING DISORDERS? :NO ANY NEW NUMBNESS OR WEAKNESS IN YOUR LEGS OR ARMS? :NO ANY PACEMAKER,DEFIBRILLATOR, OR DORSAL COLUMN STIMULATOR? :NO DO YOU HAVE ANY RASHES OR OPEN SORES? :NO ARE YOU ALLERGIC TO IV DYE? :NO ARE YOU DIABETIC? :YES ANY NEW PROBLEMS WITH YOUR MEDICATIONS? :NO HAVE YOU RECEIVED A VACCINE IN THE PAST 30 DAYS? :NO DO YOU PLAN TO RECEIVE A VACCINE IN THE NEXT 21 DAYS? :NO DO YOU NEED ANY PRESCRIPTION? :NO DO YOU TAKE ANY IMMUNOSUPPRESSIVE MEDICATIONS? :NO DO YOU HAVE ANY KIDNEY OR LIVER DISEASE? :NO IS THERE A CHANCE YOU COULD BE ? :NO ARE YOU BREAST FEEDING? :NO CURRENT MEDICATIONS TAKING VITAMIN D (CHOLECALCIFEROL) 50 MCG (1999 UT) CAPSULE 91068 UNITS ORALLY ONCE A DAY TAKING TOPAMAX 50 MG TABLET 1 TABLET ORALLY BID TAKING ZYRTEC ALLERGY 10 MG TABLET 1 TABLET ORALLY ONCE A DAY TAKING PRILOSEC OTC 20 MG TABLET DELAYED RELEASE AL ORALLY TWICE DAILY TAKING NORVASC 5MG TABLET ORAL DAILY TAKING METFORMIN HCL 850 MG TABLET 1 TABLET WITH A MEAL ORALLY TWICE A DAY, NOTES: 800 MG BID TAKING PERCOCET 5-325 MG TABLET 1 TO 2 TAB ORALLY Q4-6 HR PRN PAIN MDD4 #50 TABS SHOULD LAST 30 DAYS NOT-TAKING PRILOSEC 10 MG PACKET 40MG ORALLY NOT-TAKING FAMOTIDINE 20 MG TABLET 1 TABLET AT BEDTIME NEEDED ORALLY TWICE A DAY NOT-TAKING METHYLPREDNISOLONE 4 MG TABLET 1 TABLET WITH FOOD OR MILK ORALLY EVERY 12 HRS NOT-TAKING LORATADINE 10 MG TABLET 20MG ORALLY ONCE A DAY NOT-TAKING IBUPROFEN 800 MG TABLET 1 TABLET WITH FOOD OR MILK NEEDED ORALLY THREE TIMES A DAY NOT-TAKING EXCEDRIN MIGRAINE 250-250-65 MG TABLET 1 TAB ORALLY PRN MEDICATION LIST REVIEWED AND RECONCILED WITH THE PATIENT PAST MEDICAL HISTORY DIABETES MELLITUS GERD CHRONIC PAIN ALLERGIES SEASONAL - ONSET DATE 02/04/2020 LISINOPRIL: FACE SAWLLOW SOCIAL HISTORY GENERAL: TOBACCO USE ARE YOU A:NONSMOKER LATEX QUESTIONNAIRE LATEX ALLERGY : HAVE YOU EVER DEVELOPED ANY TYPE OF REACTION AFTER HANDLING LATEX PRODUCTS SUCH RUBBER GLOVES, CONDOMS, DIAPHRAGMS, BALLOONS, SOCKS, OR UNDERWEAR?NO LATEX ALLERGY : HAVE YOU EVER DEVELOPED ANY TYPE OF REACTION DURING OR AFTER DENTAL APPOINTMENT, VAGINAL/RECTAL EXAMINATION, SURGICAL PROCEDURE, OR ANY OTHER EXPOSURE?NO LATEX RISK : HAVE YOU EVER HAD ANY DIFFICULTY BREATHING OR HIVES AFTER EATING OR HANDLING ANY FRUITS, OR VEGETABLES; SUCH KIWI, BANANAS, STONE FRUITS, OR CHESTNUTSNO LATEX RISK : DO YOU HAVE A PREVIOUS PERSONAL HISTORY OF MORE THAN NINE SURGERIES, SPINA BIFIDA, OR REPEATED CATHERIZATIONS? NO LATEX RISK : ARE YOU FREQUENTLY EXPOSED TO LATEX PRODUCTS IN YOUR OCCUPATION?NO DATE ASKED : 05/14/2021 ALCOHOL USE: NO. ALCOHOL SCREENING DID YOU HAVE A DRINK CONTAINING ALCOHOL IN THE PAST YEAR?NO POINTS0 INTERPRETATIONNEGATIVE RECREATIONAL DRUG USE DRUG USE?NO CAFFEINE CAFFEINE USE?YES HOW OFTEN AND HOW MUCH? 3/DAY RELIGIOUS RELIGIOUS NO CHRISTIANITY BELIEFS THAT WOULD IMPACT HEALTH CARE. LANGUAGE LANGUAGES SPOKEN:JORDANIAN LEARNING BARRIERS / SPECIAL NEEDS CHANGE FROM LAST VISIT?NO BARRIERS TO LEARNING?NO HEARING IMPAIRED?NO VISION IMPAIRED?NO COGNITIVELY IMPAIRED?NO READINESS TO LEARN?YES LEARNING PREFERENCES?NO LEARNING CAPABILITIES PRESENT?YES EMOTIONAL BARRIERS?NO SPECIAL DEVICES?NO SUPERVISOR KOSHER DIETARY SERVICE NEEDED?NO - HAS THE PATIENT BEEN EDUCATED REGARDING HIS/HER PLAN OF CARE?YES HAS THE PATIENT BEEN EDUCATED REGARDING PAIN, THE RISK FOR PAIN, THE IMPORTANCE OF EFFECTIVE PAIN MANAGEMENT, AND THE PAIN ASSESSMENT PROCESS?YES ADVANCE DIRECTIVE ADVANCE DIRECTIVE DISCUSSED WITH PATIENT:YES SISTER-CHEIKH STEEN REVIEW OF SYSTEMS CONSTITUTIONAL: ANY RECENT FEVER NO . CHILLS NO . WEIGHT CHANGE OF UNKNOWN REASONS NO . GASTROENTEROLOGY: NEW UNEXPLAINABLE CHANGES IN BOWEL CONTROL NO . CONSTIPATION NO. ABDOMINAL PAIN . GENITOURINARY: ANY NEW CHANGE IN BLADDER CONTROL? NO . NEUROLOGY: NEW ONSET DIZZINESS OR NEUROLOGICAL CHANGES NOT MENTIONED NO . NEW NUMBNESS OR PAIN PATTERNS NOT MENTIONED AND PERTINENT TO TODAY'S VISIT NO . CARDIOLOGY: NEW CHEST PRESSURE NO . PATIENT DENIES NO . RESPIRATORY: UNEXPLAINABLE COUGH NO . NEW SHORTNESS OF BREATH NO . VITAL SIGNS WT 214.6 LBS, WT-KG 97.34 KG, HT 71 IN, BMI 29.93 INDEX05/15/21 1455 NO VITALS TAKEN DUE TO VIRTUAL VISIT. Tanisha WILSON RN. EXAMINATION GENERAL: THE PATIENT IS ALERT, ORIENTED TIMES THREE AND COOPERATIVE. THIS A TELEPHONE VISIT. 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 TREATMENT ABDOMINAL SCAR NEUROMA CLINICAL NOTES: I DISCUSSED ALTERNATIVES WITH MS. RYAN. SHE IS GOING TO HAVE THE PSYCHOLOGICAL EVALUATION NEXT WEEK. SO I WILL DO A TELEPHONE VISIT IN A MONTH. TOTAL TIME FOR THIS VISIT WAS 9 MINUTES. THE PATIENT REPORTS UNDERSTANDING AND AGREES WITH THE PLAN. I, MATTHEW JEWELL, DOCUMENTED THE ABOVE INFORMATION ACTING A SCRIBE FOR DR. GONZALEZ. I HAVE REVIEWED THE ABOVE DOCUMENT, WRITTEN BY MATTHEW JEWELL, NOVELTY TWISTER TENDER, AND I VERIFY THAT IT IS ACCURATE. VISIT CODES 18194 TELEMEDICINE PHONE E/M BY PHYS 5-10 MIN. DISPOSITION & COMMUNICATION FOLLOW UP FOLLOW UP IN 1 MONTH TELEMED (REASON: DISCUSS DCS/PSYCH EVAL) ELECTRONICALLY SIGNED BY SALMA GONZALEZ MD, MD ON 05/20/2021 AT 04:42 PM EDT DISCLAIMER : THIS IS A VISIT SUMMARY EXTRACTED FROM THE [employer] CHART. IT IS NOT A COPY OF THE [employer] PROGRESS NOTE. RICK
== END ==
LOC: M PAIN 14:45
PROVIDERS: ATTEND Anesthesiology
DX: D36.15 Benign neoplasm of peripheral nerves and autonomic nervous system of abdomen (principal); R10.9 Unspecified abdominal pain; E11.9 Type 2 diabetes mellitus without complications; K21.9 Gastro-esophageal reflux disease without esophagitis; Z88.8 Allergy status to other drugs, medicaments and biological substances; Z79.84 Long term (current) use of oral hypoglycemic drugs; Z79.891 Long term (current) use of opiate analgesic; Z79.899 Other long term (current) drug therapy

== ENCOUNTER → 2021-06-19 | Outpatient (CLI) | payer OTHER | LOC: M PAIN 15:00 | PROVIDERS: ATTEND Anesthesiology | DX: R10.9 Unspecified abdominal pain (principal); D36.15 Benign neoplasm of peripheral nerves and autonomic nervous system of abdomen; E11.9 Type 2 diabetes mellitus without complications; K21.9 Gastro-esophageal reflux disease without esophagitis; Z88.8 Allergy status to other drugs, medicaments and biological substances; Z79.84 Long term (current) use of oral hypoglycemic drugs; Z79.891 Long term (current) use of opiate analgesic; Z79.899 Other long term (current) drug therapy ==

== ENCOUNTER → 2021-08-19 | Outpatient (CLI) | payer OTHER | LOC: M PAIN 10:00 | PROVIDERS: ATTEND Anesthesiology | DX: R10.9 Unspecified abdominal pain (principal); M79.2 Neuralgia and neuritis, unspecified; E11.9 Type 2 diabetes mellitus without complications; Z79.84 Long term (current) use of oral hypoglycemic drugs; Z79.891 Long term (current) use of opiate analgesic; Z79.899 Other long term (current) drug therapy ==

== ENCOUNTER → 2021-11-19 | Outpatient (CLI) | payer OTHER | LOC: M PAIN 11:30 | PROVIDERS: ATTEND Anesthesiology | DX: G89.29 Other chronic pain (principal); R10.9 Unspecified abdominal pain; M79.2 Neuralgia and neuritis, unspecified; E11.9 Type 2 diabetes mellitus without complications; K21.9 Gastro-esophageal reflux disease without esophagitis; Z79.84 Long term (current) use of oral hypoglycemic drugs; Z79.891 Long term (current) use of opiate analgesic; Z79.899 Other long term (current) drug therapy ==

== ENCOUNTER → 2022-04-28 | Outpatient (CLI) | payer OTHER | LOC: M PAIN 13:45 | PROVIDERS: ATTEND Anesthesiology | DX: Z53.21 Procedure and treatment not carried out due to patient leaving prior to being seen by health care provider (principal) ==

== ENCOUNTER → 2022-04-30 | Outpatient (CLI) | payer OTHER | LOC: M WHC 15:29 | PROVIDERS: ATTEND Physician Assistant | DX: Z12.31 Encounter for screening mammogram for malignant neoplasm of breast (principal); R92.8 Other abnormal and inconclusive findings on diagnostic imaging of breast; Z85.43 Personal history of malignant neoplasm of ovary; Z80.41 Family history of malignant neoplasm of ovary; Z98.890 Other specified postprocedural states ==

== ENCOUNTER → 2022-07-02 | Outpatient (CLI) | payer OTHER | LOC: M PAIN 15:00 | PROVIDERS: ATTEND Anesthesiology | DX: R10.9 Unspecified abdominal pain (principal); G89.29 Other chronic pain; M79.2 Neuralgia and neuritis, unspecified; E11.9 Type 2 diabetes mellitus without complications; K21.9 Gastro-esophageal reflux disease without esophagitis; Z88.8 Allergy status to other drugs, medicaments and biological substances; Z79.84 Long term (current) use of oral hypoglycemic drugs; Z79.899 Other long term (current) drug therapy ==

== ENCOUNTER → 2022-07-19 | Outpatient (CLI) | payer OTHER | LOC: M RAD 16:47 | PROVIDERS: ATTEND Physician Assistant | DX: M17.0 Bilateral primary osteoarthritis of knee (principal); M20.11 Hallux valgus (acquired), right foot; M77.31 Calcaneal spur, right foot; M77.32 Calcaneal spur, left foot; M25.561 Pain in right knee; M25.562 Pain in left knee; M23.8X1 Other internal derangements of right knee; M72.2 Plantar fascial fibromatosis; M79.672 Pain in left foot; M79.671 Pain in right foot ==

== ENCOUNTER → 2022-08-16 | Outpatient (REF) | payer OTHER ==
[2022-08-16 19:34] LABS: CALCIUM LEVEL 8.7 MG/DL (8.5-10.1); CREATININE FOR GFR 1.16 MG/DL (0.55-1.30); GLOMERULAR FILTRATION RATE 53.8 (>58)
[2022-08-16 20:40] LABS: TOTAL 25(OH) VITAMIN D 35.3 NG/ML (30.0-100.0)
== END ==
LOC: M LAB REF 16:08
PROVIDERS: ATTEND Physician Assistant
DX: I10 Essential (primary) hypertension (principal); E55.9 Vitamin D deficiency, unspecified

== ENCOUNTER → 2022-09-01 | Outpatient (CLI) | payer OTHER | LOC: M SOG 08:07 | PROVIDERS: ATTEND Orthopaedic Surgery Adult Reconstructive Orthopaedic Surgery | DX: M25.561 Pain in right knee (principal); M25.562 Pain in left knee; D16.9 Benign neoplasm of bone and articular cartilage, unspecified ==

== ENCOUNTER → 2022-09-29 | Outpatient (REF) | payer OTHER | LOC: M LAB REF 16:26 | PROVIDERS: ATTEND Physician Assistant | DX: Z12.4 Encounter for screening for malignant neoplasm of cervix (principal); R87.610 Atypical squamous cells of undetermined significance on cytologic smear of cervix (ASC-US) ==

== ENCOUNTER → 2022-10-28 | Outpatient (CLI) | payer OTHER | LOC: M RAD 10:56 | PROVIDERS: ATTEND Physician Assistant | DX: R10.2 Pelvic and perineal pain (principal) ==

== ENCOUNTER 2022-11-19 15:27 | Emergency (ER) | payer OTHER ==
[~2022-11-19] VITALS: Ht 180.3 cm; Wt 97.7 kg
[2022-11-19 15:27] VITALS: BP 143/80
[2022-11-19 17:23] LABS: LIPASE 42 U/L (12-53)
[2022-11-19 17:25] LABS: ALBUMIN 3.6 G/DL (3.2-5.2); ALKALINE PHOSPHATASE 67 U/L (46-116); ALT/SGPT 18 U/L (7.0-40); AST/SGOT 20 U/L (<34); BASO % 0.2 % (0.0-1.0); BILIRUBIN,DIRECT < 0.1 MG/DL (<0.4); BILIRUBIN,TOTAL 0.2 MG/DL (0.3-1.2); BLOOD UREA NITROGEN 14 MG/DL (9-23); CALCIUM LEVEL 8.8 MG/DL (8.5-10.1); CARBON DIOXIDE LEVEL 28 MMOL/L (20-31); CHLORIDE LEVEL 105 MMOL/L (98-107); CREATININE FOR GFR 1.17 MG/DL (0.55-1.30); EOS # 0.1 10^3/uL (0.0-0.5); EOS % 2.1 % (0.0-3.0); GLOMERULAR FILTRATION RATE 53.3 (>58); GLUCOSE, FASTING 89 MG/DL (60-100); HEMATOCRIT 35.7 % (36.0-47.0); HEMOGLOBIN 10.8 g/dl (12.0-15.5); LYMPH # 0.9 10^3/uL (1.5-5.0); LYMPH % 20.7 % (24.0-44.0); MEAN CORPUSCULAR HEMOGLOBIN 25.4 pg (27.0-33.0); MEAN CORPUSCULAR HGB CONC 30.3 g/dl (32.0-36.5); MONO # 0.5 10^3/uL (0.0-0.8); MONO % 10.9 % (2.0-8.0); NEUTROPHILS # 2.9 10^3/uL (1.5-8.5); NEUTROPHILS % 65.9 % (36.0-66.0); PLATELET COUNT, AUTOMATED 290 10^3/uL (150-450); POTASSIUM SERUM 3.7 MMOL/L (3.5-5.1); RED BLOOD COUNT 4.25 10^6/uL (4.00-5.40); SODIUM LEVEL 139 MMOL/L (136-145); TOTAL PROTEIN 6.9 G/DL (5.7-8.2); WHITE BLOOD COUNT 4.4 10^3/uL (4.0-10.0)
[2022-11-19 17:28] LABS: HCG, SERUM QUALITATIVE NEGATIVE (NEGATIVE)
[2022-11-19] MEDS ORDERED: KETOROLAC 30 MG/ML 1ML VIAL IV ONE (19:05)
[2022-11-19] MEDS ORDERED: ONDANSETRON 4MG 2ML VIAL IV ONE (19:05)
[2022-11-19] MEDS ORDERED: ISOVUE-370 76% 100ML VIAL As Ordered ONE (19:08)
[2022-11-19] MEDS ORDERED: ONDA4TAB6 PO (20:56)
== END 2022-11-19 21:19 | disposition home or self-care (01) ==
LOC: M ED 15:27
DX: A08.4 Viral intestinal infection, unspecified (principal); K80.20 Calculus of gallbladder without cholecystitis without obstruction; K57.30 Diverticulosis of large intestine without perforation or abscess without bleeding; E11.9 Type 2 diabetes mellitus without complications; I10 Essential (primary) hypertension; Z87.442 Personal history of urinary calculi; Z79.84 Long term (current) use of oral hypoglycemic drugs; Z79.899 Other long term (current) drug therapy
CPT/HCPCS: 74177; 80048; 80076; 81000; 81015; 83690; 84703; 85025; 87086; 96374; 96375; 99282; J1885; J2405

== ENCOUNTER → 2022-12-17 | Outpatient (CLI) | payer OTHER ==
[~2022-12-17] MED LIST changes: +ONDA4TAB6 PO; +TOPI-254 PO; -TOPI50TA9 PO
== END ==
LOC: M PAIN 15:30
PROVIDERS: ATTEND Anesthesiology
DX: R10.9 Unspecified abdominal pain (principal); M79.2 Neuralgia and neuritis, unspecified; E11.9 Type 2 diabetes mellitus without complications; K21.9 Gastro-esophageal reflux disease without esophagitis; G89.29 Other chronic pain; Z79.891 Long term (current) use of opiate analgesic

== ENCOUNTER → 2023-05-11 | Outpatient (CLI) | payer OTHER ==
[2023-05-11 19:24] LABS: HEMATOCRIT 34.3 % (36.0-47.0); HEMOGLOBIN 10.4 g/dl (12.0-15.5); MEAN CORPUSCULAR HEMOGLOBIN 26.5 pg (27.0-33.0); MEAN CORPUSCULAR HGB CONC 30.3 g/dl (32.0-36.5); MEAN CORPUSCULAR VOLUME 87.3 fl (80.0-96.0); PLATELET COUNT, AUTOMATED 328 10^3/uL (150-450); RED BLOOD COUNT 3.93 10^6/uL (4.00-5.40); WHITE BLOOD COUNT 4.5 10^3/uL (4.0-10.0)
[2023-05-11 19:52] LABS: ALBUMIN 3.6 G/DL (3.2-5.2); ALKALINE PHOSPHATASE 56 U/L (46-116); ALT/SGPT 11 U/L (7.0-40); AST/SGOT 18 U/L (<34); BILIRUBIN,TOTAL 0.4 MG/DL (0.3-1.2); BLOOD UREA NITROGEN 10 MG/DL (9-23); CALCIUM LEVEL 8.7 MG/DL (8.5-10.1); CARBON DIOXIDE LEVEL 28 MMOL/L (20-31); CHLORIDE LEVEL 105 MMOL/L (98-107); CHOLESTEROL LEVEL 191 MG/DL (<200); CHOLESTEROL RISK RATIO 2.58 (<5); CREATININE FOR GFR 0.86 MG/DL (0.55-1.30); GLOMERULAR FILTRATION RATE > 60.0 (>58); GLUCOSE, FASTING 98 MG/DL (60-100); HDL CHOLESTEROL 73.8 MG/DL (>40); LDL CHOLESTEROL 83.4 MG/DL (<100); NON-HDL-C 117.2 MG/DL; POTASSIUM SERUM 3.3 MMOL/L (3.5-5.1); SODIUM LEVEL 140 MMOL/L (136-145); TOTAL PROTEIN 6.8 G/DL (5.7-8.2); TRIGLYCERIDES LEVEL 169 MG/DL (<150)
[2023-05-11 19:55] LABS: THYROID STIMULATING HORMONE 1.376 uIU/ML (0.55-4.78)
== END ==
LOC: M WUC 14:57
PROVIDERS: ATTEND Physician Assistant
DX: I10 Essential (primary) hypertension (principal)

== ENCOUNTER 2023-09-29 10:59 | Day surgery (SDC) | payer MEDICAID, SELFPAY ==
[~2023-09-29] VITALS: Ht 180.3 cm; Wt 84.6 kg
[~2023-09-29 10:59] MED LIST changes: +AMLO1TAB25 PO; +DICL100G10 TOP; +FAMO10TA50 PO; +GABA-282 PO; +NS 1,000 ML IV ONE; +OMEP1CAP73 PO; +TOPI-21 PO; -TOPI-254 PO; +VITA100093 PO
[2023-09-29] MEDS ORDERED: propofoL 200 MG/20 ML VIAL As Ordered ONE (12:03)
[2023-09-29 12:10] VITALS: TEMP 97.9
[2023-09-29 12:23] VITALS: BP 170/93; O2SAT 100
== END 2023-09-29 12:40 | disposition home or self-care (01) ==
LOC: M OPP 10:59
PROVIDERS: ATTEND Surgery
DX: Z12.11 Encounter for screening for malignant neoplasm of colon (principal); K57.30 Diverticulosis of large intestine without perforation or abscess without bleeding; Z79.84 Long term (current) use of oral hypoglycemic drugs; Z79.899 Other long term (current) drug therapy; Z88.8 Allergy status to other drugs, medicaments and biological substances

== ENCOUNTER 2023-11-13 21:39 | Emergency (ER) | payer MEDICAID, OTHER ==
[~2023-11-13] VITALS: Ht 180.3 cm; Wt 89.8 kg
[~2023-11-13 21:39] MED LIST changes: -NS 1,000 ML IV ONE
[2023-11-13] MEDS ORDERED: ACETAMINOPHEN 500 MG TAB PO ONE (22:45)
[2023-11-13] MEDS ORDERED: traMADol 50 MG TAB PO ONE (23:30)
[2023-11-14 00:37] VITALS: BP 133/85; TEMP 99.5; O2SAT 100
== END 2023-11-14 00:46 | disposition home or self-care (01) ==
LOC: M ED 21:39
DX: M54.2 Cervicalgia (principal); M54.9 Dorsalgia, unspecified; M79.604 Pain in right leg; M25.511 Pain in right shoulder; V43.62XA Car passenger injured in collision with other type car in traffic accident, initial encounter; Y92.9 Unspecified place or not applicable; Y93.9 Activity, unspecified; Y99.9 Unspecified external cause status; M51.27 Other intervertebral disc displacement, lumbosacral region; M25.78 Osteophyte, vertebrae; M48.061 Spinal stenosis, lumbar region without neurogenic claudication; M48.07 Spinal stenosis, lumbosacral region; E11.9 Type 2 diabetes mellitus without complications; I10 Essential (primary) hypertension; D64.9 Anemia, unspecified; Z79.899 Other long term (current) drug therapy; Z88.8 Allergy status to other drugs, medicaments and biological substances

== ENCOUNTER 2023-11-27 01:42 | Emergency (ER) | payer MEDICAID, OTHER, SELFPAY ==
[~2023-11-27] VITALS: Ht 180.3 cm; Wt 97.1 kg
[2023-11-27 01:44] VITALS: BP 176/98; TEMP 97.6; O2SAT 100
== END 2023-11-27 02:53 | disposition left against medical advice (07) ==
LOC: M ED 01:42
DX: Z53.21 Procedure and treatment not carried out due to patient leaving prior to being seen by health care provider (principal)

== ENCOUNTER 2023-11-27 06:58 | Emergency (ER) | payer OTHER ==
[~2023-11-27] VITALS: Ht 180.3 cm; Wt 92.9 kg
[2023-11-27 06:58] VITALS: TEMP 98.6; O2SAT 99
[2023-11-27] MEDS: methylPREDNISolone 125MG 2ML VIAL IM ONE (11:14)
[2023-11-27 12:14] VITALS: BP 140/92
== END 2023-11-27 12:19 | disposition home or self-care (01) ==
LOC: M ED 06:58
DX: M25.511 Pain in right shoulder (principal); E11.9 Type 2 diabetes mellitus without complications; I10 Essential (primary) hypertension; D64.9 Anemia, unspecified; F17.210 Nicotine dependence, cigarettes, uncomplicated; Z88.8 Allergy status to other drugs, medicaments and biological substances; Z79.899 Other long term (current) drug therapy; Z79.84 Long term (current) use of oral hypoglycemic drugs
CPT/HCPCS: 73030; 96372; 99283; J2930

== ENCOUNTER → 2024-01-27 | Outpatient (CLI) | payer OTHER | LOC: M RAD 11:40 | PROVIDERS: ATTEND Physician Assistant | DX: M54.12 Radiculopathy, cervical region (principal) ==

== ENCOUNTER → 2024-03-15 | Outpatient (CLI) | payer OTHER ==
[~2024-03-15] MED LIST changes: +ONDA-282 PO; -ONDA4TAB6 PO
== END ==
LOC: M PLARAD 08:29
PROVIDERS: ATTEND Physician Assistant
DX: S46.011A Strain of muscle(s) and tendon(s) of the rotator cuff of right shoulder, initial encounter (principal); Y93.9 Activity, unspecified; Y92.9 Unspecified place or not applicable

== ENCOUNTER → 2024-04-20 | Outpatient (CLI) | payer OTHER ==
[~2024-04-20] MED LIST changes: +AMLO10TA PO; +METF-877 PO; +NORV5TAB PO; +PREG75CA3 PO
[2024-04-20 17:59] LABS: BASO % 0.2 % (0.0-1.0); EOS # 0.2 10^3/uL (0.0-0.5); EOS % 4.5 % (0.0-3.0); HEMATOCRIT 39.2 % (36.0-47.0); LYMPH % 37.6 % (24.0-44.0); MEAN CORPUSCULAR HEMOGLOBIN 26.1 pg (27.0-33.0); MEAN CORPUSCULAR HGB CONC 30.6 g/dl (32.0-36.5); MEAN CORPUSCULAR VOLUME 85.2 fl (80.0-96.0); MONO # 0.5 10^3/uL (0.0-0.8); MONO % 9.7 % (2.0-8.0); NEUTROPHILS # 2.6 10^3/uL (1.5-8.5); NEUTROPHILS % 47.8 % (36.0-66.0); PLATELET COUNT, AUTOMATED 411 10^3/uL (150-450); WHITE BLOOD COUNT 5.3 10^3/uL (4.0-10.0)
[2024-04-20 18:20] LABS: BLOOD UREA NITROGEN 8 MG/DL (9-23); CALCIUM LEVEL 9.4 MG/DL (8.5-10.1); CARBON DIOXIDE LEVEL 29 MMOL/L (20-31); CHLORIDE LEVEL 103 MMOL/L (98-107); CREATININE FOR GFR 0.93 MG/DL (0.55-1.30); GLOMERULAR FILTRATION RATE > 60.0 (>58); GLUCOSE, FASTING 105 MG/DL (60-100); SODIUM LEVEL 139 MMOL/L (136-145)
== END ==
LOC: M LAB 17:14
PROVIDERS: ATTEND Physician Assistant
DX: I10 Essential (primary) hypertension (principal); E11.9 Type 2 diabetes mellitus without complications

== ENCOUNTER 2024-05-02 14:05 | Observation (INO) | payer OTHER ==
[~2024-05-02] VITALS: Ht 180.3 cm; Wt 100.1 kg
[~2024-05-02 14:05] MED LIST changes: +ACET325C5 PO; +CELE1CAP4 PO; +OXYC-1 PO; +TRAM50TA2 PO
[2024-05-02] MEDS ORDERED: GLUCOSE 4 GM CHEW PO PRN ×2 (14:15→23:35)
[2024-05-02] MEDS ORDERED: DEXTROSE 50% 50ML SYRINGE IV PRN ×2 (14:15→23:35)
[2024-05-02] MEDS ORDERED: LR 1,000 ML IV SCH ×2 (14:15→20:05)
[2024-05-02] MEDS ORDERED: LIDOCAINE 1% SDV 5ML VIAL SC PRN (14:15)
[2024-05-02] MEDS ORDERED: GLUCAGON INJ 1MG VIAL SC PRN ×2 (14:15→23:35)
[2024-05-02] MEDS ORDERED: INSULIN LISPRO (NovoLOG) PER UNIT SC PRN (14:15)
[2024-05-02] MEDS ORDERED: ROCURONIUM BROMIDE 50MG/5ML VIAL As Ordered ONE (16:14)
[2024-05-02] MEDS ORDERED: ONDANSETRON 4MG 2ML VIAL As Ordered ONE (16:14)
[2024-05-02] MEDS ORDERED: KETOROLAC 60MG 2ML VIAL As Ordered ONE (16:14)
[2024-05-02] MEDS ORDERED: LIDOCAINE 2% 100MG/5ML SDV (FOR ANES.) As Ordered ONE (16:14)
[2024-05-02] MEDS ORDERED: propofoL 200 MG/20 ML VIAL As Ordered ONE (16:14)
[2024-05-02] MEDS ORDERED: fentaNYL 250 MCG/5 ML INJECTION As Ordered ONE (16:15)
[2024-05-02] MEDS ORDERED: MIDAZOLAM INJ 2MG/2ML VIAL As Ordered ONE (16:16)
[2024-05-02] MEDS: fentaNYL 100 MCG/2 ML INJECTION IV PRN ×2 (16:24→20:40)
[2024-05-02] MEDS: MIDAZOLAM INJ 2MG/2ML VIAL IV PRN (16:25)
[2024-05-02] MEDS ORDERED: dexmedeTOMIDine (4MCG/ML)200MCG/50ML BTL (PRECEDEX) As Ordered ONE (16:28)
[2024-05-02] MEDS: LIDOCAINE 1% SDV 5ML VIAL PN ONE (16:40)
[2024-05-02] MEDS: ROPIvacaine 0.5% 30ML VIAL PN ONE (16:40)
[2024-05-02] MEDS: LIDOCAINE 1% SDV 30ML VIAL As Ordered ONE (16:51)
[2024-05-02] MEDS: ceFAZolin 2 GM/D5W 50 ML IV BAG As Ordered ONE (17:08)
[2024-05-02] MEDS: TRANEXAMIC ACID 100 MG/ML 10ML VIAL As Ordered ONE (17:20)
[2024-05-02] MEDS ORDERED: PHENYLephrine 500MCG 5ML (100MCG/ML) SYRINGE As Ordered ONE (17:27)
[2024-05-02] MEDS ORDERED: ePHEDrine SULFATE 25 MG/5 ML(5MG/ML) SYRINGE As Ordered ONE (17:38)
[2024-05-02] MEDS: VANCOMYCIN 1000MG/20ML VIAL As Ordered ONE (17:51)
[2024-05-02] MEDS ORDERED: ACETAMINOPHEN 1000MG 100ML IV BAG As Ordered ONE (18:05)
[2024-05-02] MEDS: EPINEPHrine 1MG/ML INJ 30ML MD-VIAL As Ordered ONE (18:34)
[2024-05-02] MEDS ORDERED: PHENYLEPHRINE 10MG/ML 1ML VIAL As Ordered ONE (18:34)
[2024-05-02] MEDS ORDERED: SUGAMMADEX SODIUM 500 MG/5 ML VIAL (BRIDION) As Ordered ONE (19:24)
[2024-05-02] MEDS: HYDROMORPHONE HCL 0.5 MG/ 0.5 ML SYRINGE IV PRN ×2 (20:56→23:56)
[2024-05-02] MEDS: oxyCODONE 5MG TAB PO PRN (20:56)
[2024-05-02] MEDS: ONDANSETRON 4MG 2ML VIAL IV PRN (21:05)
[2024-05-02] MEDS ORDERED: ACETAMINOPHEN TAB 650MG DOSE (2X325MG) PO PRN (23:35)
[2024-05-03] VITALS (7 sets, daily range): BP systolic 115–148; BP diastolic 58–75; TEMP 96.6–98.3; O2SAT 97–99
[2024-05-03] MEDS: INSULIN LISPRO (NovoLOG) PER UNIT SC SCH ×2 (00:11→08:02)
[2024-05-03] MEDS ORDERED: LYRI75CA PO (03:27)
[2024-05-03] MEDS ORDERED: DULO1CAP6 PO (03:27)
[2024-05-03] MEDS ORDERED: CICL6.6S EXT (03:33)
[2024-05-03] MEDS: PERCOCET 5MG/325MG TAB PO PRN (04:29)
[2024-05-03] MEDS ORDERED: ACETAMINOPHEN TAB 650MG DOSE (2X325MG) PO SCH (06:00)
[2024-05-03] MEDS ORDERED: GABA-282 PO (06:03)
[2024-05-03] MEDS ORDERED: HOME MED LIST COMPLETE! XX SCH (06:05)
[2024-05-03] MEDS ORDERED: MORPHINE 2 MG/ML 1ML VIAL IV PRN (07:15)
[2024-05-03] MEDS ORDERED: MORPHINE 4 MG/ML 1ML VIAL IV PRN (07:15)
[2024-05-03] MEDS ORDERED: KETOROLAC 30 MG/ML 1ML VIAL IV PRN (07:15)
[2024-05-03] MEDS ORDERED: TOPIRAMATE (TopAMAX) 25 MG TAB PO PRN (07:15)
[2024-05-03] MEDS: KETOROLAC 30 MG/ML 1ML VIAL IV SCH (08:04)
[2024-05-03] MEDS ORDERED: oxyCODONE 5MG TAB PO PRN (08:25)
[2024-05-03 08:34] LABS: HEMATOCRIT 31.5 % (36.0-47.0); HEMOGLOBIN 9.6 g/dl (12.0-15.5); MEAN CORPUSCULAR HEMOGLOBIN 25.5 pg (27.0-33.0); MEAN CORPUSCULAR HGB CONC 30.5 g/dl (32.0-36.5); MEAN CORPUSCULAR VOLUME 83.8 fl (80.0-96.0); PLATELET COUNT, AUTOMATED 278 10^3/uL (150-450); RED BLOOD COUNT 3.76 10^6/uL (4.00-5.40); WHITE BLOOD COUNT 9.7 10^3/uL (4.0-10.0)
[2024-05-03 08:54] LABS: ALBUMIN 3.5 G/DL (3.2-5.2); ALKALINE PHOSPHATASE 66 U/L (46-116); ALT/SGPT 20 U/L (7.0-40); AST/SGOT 28 U/L (<34); BILIRUBIN,TOTAL 0.3 MG/DL (0.3-1.2); BLOOD UREA NITROGEN 18 MG/DL (9-23); CALCIUM LEVEL 8.8 MG/DL (8.5-10.1); CARBON DIOXIDE LEVEL 27 MMOL/L (20-31); CHLORIDE LEVEL 103 MMOL/L (98-107); CREATININE FOR GFR 0.97 MG/DL (0.55-1.30); GLOMERULAR FILTRATION RATE > 60.0 (>58); GLUCOSE, FASTING 148 MG/DL (60-100); POTASSIUM SERUM 4.3 MMOL/L (3.5-5.1); SODIUM LEVEL 137 MMOL/L (136-145); TOTAL PROTEIN 6.7 G/DL (5.7-8.2)
[2024-05-03] MEDS ORDERED: HEPARIN SOD (PORCINE) 5000UNITS/ML 1ML VIAL/SYRINGE SQ SCH (09:00)
[2024-05-03] MEDS ORDERED: PANTOPRAZOLE 40MG VIAL IV SCH (09:00)
[2024-05-03] MEDS: ACETAMINOPHEN 500 MG TAB PO SCH ×2 (09:10→14:22)
[2024-05-03] MEDS: VITAMIN D 1,000 INTERNATIONAL UNITS TABLET PO SCH (09:11)
[2024-05-03] MEDS: DULoxetine 30MG CAPSULE (CYMBALTA) PO SCH (09:11)
[2024-05-03] MEDS: GABAPENTIN 300 MG CAP PO SCH (09:12)
[2024-05-03] MEDS: CYCLOBENZAPRINE 5MG TABLET PO SCH (09:12)
[2024-05-03] MEDS: oxyCODONE 5MG TAB PO PRN (09:12)
[2024-05-03] MEDS: amLODIPine 5 MG TAB PO SCH (09:14)
[2024-05-03] MEDS: TOPIRAMATE (TopAMAX) 25 MG TAB PO SCH (09:14)
[2024-05-03] MEDS: ENOXAPARIN 40MG/0.4ML SYRINGE (J1650 PER 10MG) SC SCH (09:15)
[2024-05-03] MEDS: PREGABALIN 75 MG CAP(LYRICA) PO PRN (12:43)
[2024-05-04] VITALS: BP 119/63; TEMP 98.8; O2SAT 97
[2024-05-04 04:00] VITALS: BP 113/66; TEMP 97.6; O2SAT 97
[2024-05-04 08:00] VITALS: BP 141/58; TEMP 96.5; O2SAT 99
[2024-05-04 08:52] VITALS: BP 141/58
== END 2024-05-04 11:15 | disposition home or self-care (01) ==
LOC: M SDC 14:05 → M PED 23:35
PROVIDERS: ADMIT Internal Medicine; ATTEND Internal Medicine
DX: M75.101 Unspecified rotator cuff tear or rupture of right shoulder, not specified as traumatic (principal); M19.011 Primary osteoarthritis, right shoulder; M75.31 Calcific tendinitis of right shoulder; G89.18 Other acute postprocedural pain; R11.0 Nausea; G43.909 Migraine, unspecified, not intractable, without status migrainosus; E11.9 Type 2 diabetes mellitus without complications; K21.9 Gastro-esophageal reflux disease without esophagitis; I10 Essential (primary) hypertension; Z88.8 Allergy status to other drugs, medicaments and biological substances; Z79.899 Other long term (current) drug therapy; Z79.84 Long term (current) use of oral hypoglycemic drugs; Z79.1 Long term (current) use of non-steroidal anti-inflammatories (NSAID)
CPT/HCPCS: 23120; 29827; 29828; 36415; 73020; 80053; 81025; 85027; 96372; 96374; 96376; C1713; J0131; J0171; J0690; J1100; J1170; J1650; J1815; J1885; J2250; J2371; J2405; J2795; J3010; J3370

== ENCOUNTER → 2024-06-27 | Outpatient (CLI) | payer OTHER ==
[~2024-06-27] MED LIST changes: +CICL6.6S EXT; +DULO1CAP6 PO; +LYRI75CA PO
== END ==
LOC: M SOG 09:11
PROVIDERS: ATTEND Orthopaedic Surgery
DX: S46.011A Strain of muscle(s) and tendon(s) of the rotator cuff of right shoulder, initial encounter (principal); Y93.9 Activity, unspecified; Y92.9 Unspecified place or not applicable

== ENCOUNTER → 2024-07-11 | Outpatient (CLI) | payer OTHER ==
[~2024-07-11] MED LIST changes: +GABA-1172 PO; -GABA-282 PO
[2024-07-11 16:14] LABS: HEMOGLOBIN A1c 5.7 % (4.0-6.0)
[2024-07-11 16:31] LABS: ALBUMIN 3.7 G/DL (3.2-5.2); ALKALINE PHOSPHATASE 74 U/L (46-116); ALT/SGPT 14 U/L (7.0-40); AST/SGOT 21 U/L (<34); BILIRUBIN,TOTAL 0.4 MG/DL (0.3-1.2); BLOOD UREA NITROGEN 10 MG/DL (9-23); CALCIUM LEVEL 8.8 MG/DL (8.5-10.1); CARBON DIOXIDE LEVEL 29 MMOL/L (20-31); CHLORIDE LEVEL 103 MMOL/L (98-107); CHOLESTEROL LEVEL 170 MG/DL (<200); CHOLESTEROL RISK RATIO 2.17 (<5); CREATININE FOR GFR 1.16 MG/DL (0.55-1.30); GLOMERULAR FILTRATION RATE > 60.0 (>58); GLUCOSE, FASTING 136 MG/DL (60-100); HDL CHOLESTEROL 78.3 MG/DL (>40); LDL CHOLESTEROL 61.1 MG/DL (<100); NON-HDL-C 91.7 MG/DL; POTASSIUM SERUM 3.8 MMOL/L (3.5-5.1); SODIUM LEVEL 138 MMOL/L (136-145); TOTAL PROTEIN 7.1 G/DL (5.7-8.2); TRIGLYCERIDES LEVEL 153 MG/DL (<150)
[2024-07-11 18:00] LABS: CREATININE, URINE 751.7 MG/DL
[2024-07-11 18:01] LABS: MAU/CREAT RATIO 24.8 MCG/MG (0.0-30.0)
== END ==
LOC: M LAB 15:21
PROVIDERS: ATTEND Physician Assistant
DX: E11.9 Type 2 diabetes mellitus without complications (principal)

== ENCOUNTER → 2024-07-24 | Outpatient (REF) | payer OTHER ==
[2024-07-24 18:47] LABS: Trichomonas vaginalis (AMP) NOT DETECTED (NEGATIVE)
[2024-07-24 19:10] LABS: GC DNA AMPLIFICATION NEGATIVE (NEGATIVE)
== END ==
LOC: M LAB REF 16:45
PROVIDERS: ATTEND Physician Assistant
DX: R32 Unspecified urinary incontinence (principal); N89.8 Other specified noninflammatory disorders of vagina

== ENCOUNTER → 2024-08-30 | Outpatient (CLI) | payer OTHER | LOC: M RAD 14:59 | PROVIDERS: ATTEND Physician Assistant | DX: R32 Unspecified urinary incontinence (principal) ==

== ENCOUNTER → 2024-09-05 | Outpatient (CLI) | payer OTHER | LOC: M SOG 14:32 | PROVIDERS: ATTEND Physician Assistant | DX: M25.512 Pain in left shoulder (principal) ==

== ENCOUNTER → 2024-10-31 | Outpatient (REF) | payer OTHER ==
[2024-10-31 14:10] LABS: APPEARANCE, URINE HAZY (CLEAR); BACTERIA, URINE AUTO NEGATIVE (NEGATIVE); BILIRUBIN, URINE AUTO NEGATIVE (NEGATIVE); BLOOD, URINE BLOOD NEGATIVE (NEGATIVE); COLOR, URINE YELLOW (YELLOW); GLUCOSE, URINE (UA) AUTO 1+ mg/dL (NEGATIVE); KETONE, URINE AUTO NEGATIVE (NEGATIVE); LEUKOCYTE ESTERASE, URINE AUTO NEGATIVE (NEGATIVE); MUCUS, URINE SMALL (NEGATIVE); NITRITE, URINE AUTO NEGATIVE (NEGATIVE); PROTEIN, URINE AUTO NEGATIVE (NEGATIVE); RBC, URINE AUTO 0 /HPF (0-3); SPECIFIC GRAVITY URINE AUTO 1.023 (1.002-1.035); SQUAMOUS EPITHELIAL CELL UR AU 3 /HPF (0-6); WBC, URINE AUTO 1 /HPF (0-3)
[2024-10-31 15:22] LABS: Trichomonas vaginalis (AMP) NOT DETECTED (NEGATIVE)
[2024-10-31 15:45] LABS: GC DNA AMPLIFICATION NEGATIVE (NEGATIVE)
== END ==
LOC: M LAB REF 12:44
PROVIDERS: ATTEND Physician Assistant
DX: N39.0 Urinary tract infection, site not specified (principal); J02.9 Acute pharyngitis, unspecified; Z20.2 Contact with and (suspected) exposure to infections with a predominantly sexual mode of transmission

== ENCOUNTER → 2024-11-12 | Outpatient (CLI) | payer OTHER | LOC: M SOG 07:53 | PROVIDERS: ATTEND Physician Assistant | DX: M54.50 Low back pain, unspecified (principal); M25.511 Pain in right shoulder ==

== ENCOUNTER → 2024-12-28 | Outpatient (REF) | payer OTHER ==
[2024-12-28 15:07] LABS: Trichomonas vaginalis (AMP) NOT DETECTED (NEGATIVE)
[2024-12-28 15:31] LABS: GC DNA AMPLIFICATION NEGATIVE (NEGATIVE)
[2024-12-28 18:27] LABS: URINE PREG TEST NEGATIVE (NEGATIVE)
== END ==
LOC: M LAB REF 12:51
PROVIDERS: ATTEND Physician Assistant
DX: K13.79 Other lesions of oral mucosa (principal); N94.6 Dysmenorrhea, unspecified

== ENCOUNTER → 2025-01-09 | Outpatient (CLI) | payer OTHER | LOC: M SOG 07:56 | PROVIDERS: ATTEND Physician Assistant | DX: M25.512 Pain in left shoulder (principal); Z53.9 Procedure and treatment not carried out, unspecified reason ==

== ENCOUNTER → 2025-04-17 | Outpatient (CLI) | payer OTHER ==
[~2025-04-17] MED LIST changes: +AMLO-751 PO; -AMLO10TA PO
== END ==
LOC: M SOG 13:21
PROVIDERS: ATTEND Orthopaedic Surgery
DX: M25.511 Pain in right shoulder (principal)

== ENCOUNTER → 2025-04-22 | Outpatient (CLI) | payer OTHER ==
[2025-04-22 14:05] LABS: BASO # 0.0 10^3/uL (0.0-0.2); BASO % 0.6 % (0.0-1.0); EOS # 0.2 10^3/uL (0.0-0.5); EOS % 2.9 % (0.0-3.0); LYMPH # 2.4 10^3/uL (1.5-5.0); LYMPH % 45.3 % (24.0-44.0); MONO # 0.7 10^3/uL (0.0-0.8); MONO % 12.6 % (2.0-8.0); NEUTROPHILS # 2.0 10^3/uL (1.5-8.5); NEUTROPHILS % 38.4 % (36.0-66.0); PLATELET COUNT, AUTOMATED 359 10^3/uL (150-450)
[2025-04-22 14:14] LABS: ERYTHROCYTE SEDIMENTATION RATE 91 mm/hr (0-20)
== END ==
LOC: M LAB 12:55
PROVIDERS: ATTEND Orthopaedic Surgery
DX: M75.21 Bicipital tendinitis, right shoulder (principal); M25.511 Pain in right shoulder

== ENCOUNTER → 2025-05-20 | Outpatient (REF) | payer OTHER ==
[2025-05-20 18:12] LABS: ALT/SGPT 18.0 U/L (7.0-40); AST/SGOT 31.0 U/L (<34); CALCIUM LEVEL 9.3 MG/DL (8.5-10.1); CARBON DIOXIDE LEVEL 28.0 MMOL/L (20-31); CHLORIDE LEVEL 101.0 MMOL/L (98-107); CREATININE FOR GFR 1.02 MG/DL (0.55-1.30); GLOMERULAR FILTRATION RATE 68.3 (>58); POTASSIUM SERUM 3.9 MMOL/L (3.5-5.1); SODIUM LEVEL 140.0 MMOL/L (136-145)
[2025-05-20 18:14] LABS: TOTAL 25(OH) VITAMIN D 34.8 NG/ML (20.0-100.0)
[2025-05-20 18:32] LABS: ESTIMATED AVERAGE GLUCOSE 123.0 MG/DL (60-110)
== END ==
LOC: M LAB REF 17:47
PROVIDERS: ATTEND Nurse Practitioner Family
DX: E11.9 Type 2 diabetes mellitus without complications (principal); N18.30 Chronic kidney disease, stage 3 unspecified; E55.9 Vitamin D deficiency, unspecified

== ENCOUNTER → 2025-06-06 | Outpatient (CLI) | payer OTHER | LOC: M WHC 14:52 | PROVIDERS: ATTEND Physician Assistant | DX: Z12.31 Encounter for screening mammogram for malignant neoplasm of breast (principal); R92.313 Mammographic fatty tissue density, bilateral breasts; Z80.3 Family history of malignant neoplasm of breast; Z80.41 Family history of malignant neoplasm of ovary; Z85.43 Personal history of malignant neoplasm of ovary ==

== ENCOUNTER → 2025-06-17 | Outpatient (CLI) | payer OTHER ==
[~2025-06-17] MED LIST changes: +ISOVUE-300 61% 100 ML VIAL As Ordered ONE; +LIDOCAINE 1% MDV 20 ML VIAL As Ordered ONE; +PROHANCE 279.3MG/ML 5ML VIAL As Ordered ONE
== END ==
LOC: M RAD 13:00
PROVIDERS: ATTEND Orthopaedic Surgery
DX: M25.511 Pain in right shoulder (principal); V89.2XXD Person injured in unspecified motor-vehicle accident, traffic, subsequent encounter; M75.21 Bicipital tendinitis, right shoulder
CPT/HCPCS: 23350; 73223; 77002; A9576; Q9967

== ENCOUNTER 2025-06-30 07:35 | Emergency (ER) | payer OTHER ==
[~2025-06-30] VITALS: Ht 180.3 cm; Wt 101.0 kg
[~2025-06-30 07:35] MED LIST changes: -ISOVUE-300 61% 100 ML VIAL As Ordered ONE; -LIDOCAINE 1% MDV 20 ML VIAL As Ordered ONE; -PROHANCE 279.3MG/ML 5ML VIAL As Ordered ONE
[2025-06-30] MEDS ORDERED: LORA-930 PO (07:52)
[2025-06-30] MEDS ORDERED: AMIT25TA19 PO (07:52)
[2025-06-30] MEDS ORDERED: CELE1CAP4 PO (08:12)
[2025-06-30] MEDS ORDERED: ONDA-282 PO (08:12)
[2025-06-30] MEDS ORDERED: HOME MED LIST COMPLETE! XX SCH (08:15)
[2025-06-30 08:27] VITALS: BP 137/87; TEMP 98.2; O2SAT 100
== END 2025-06-30 09:17 | disposition home or self-care (01) ==
LOC: M ED 08:35
DX: K14.3 Hypertrophy of tongue papillae (principal); K12.1 Other forms of stomatitis; Z79.899 Other long term (current) drug therapy; Z88.8 Allergy status to other drugs, medicaments and biological substances

== ENCOUNTER → 2025-09-02 | Outpatient (CLI) | payer OTHER ==
[~2025-09-02] MED LIST changes: +AMIT25TA19 PO; +LORA-930 PO
[2025-09-02 09:19] LABS: PLATELET COUNT, AUTOMATED 406 10^3/uL (150-450)
[2025-09-02 09:54] LABS: INR 0.98
== END ==
LOC: M LAB 08:43 → M RAD 08:43
PROVIDERS: ATTEND Orthopaedic Surgery
DX: Z01.818 Encounter for other preprocedural examination (principal)

== ENCOUNTER → 2025-09-14 | Outpatient (REF) | payer OTHER ==
[2025-09-14 16:39] LABS: CREATININE, URINE 224.0 MG/DL
[2025-09-14 16:40] LABS: MALB URINE SIEMENS 29.0 MG/L; MAU/CREAT RATIO 12.9 MCG/MG (0.0-30.0)
[2025-09-16 16:23] LABS: Trichomonas vaginalis (AMP) NOT DETECTED (NEGATIVE)
[2025-09-16 16:47] LABS: GC DNA AMPLIFICATION NEGATIVE (NEGATIVE)
== END ==
LOC: M LAB 15:08
PROVIDERS: ATTEND Nurse Practitioner Family
DX: B00.1 Herpesviral vesicular dermatitis (principal)

== ENCOUNTER 2025-09-18 07:20 | Emergency (ER) | payer OTHER ==
[~2025-09-18] VITALS: Ht 180.3 cm; Wt 102.6 kg
[2025-09-18 07:23] VITALS: BP 145/98; TEMP 96.7; O2SAT 100
== END 2025-09-18 07:27 | disposition left against medical advice (07) ==
LOC: M ED 07:20
DX: Z53.21 Procedure and treatment not carried out due to patient leaving prior to being seen by health care provider (principal)

== ENCOUNTER 2025-09-20 11:24 | Emergency (ER) | payer OTHER ==
[~2025-09-20] VITALS: Ht 180.3 cm; Wt 94.1 kg
[2025-09-20] MEDS ORDERED: MORPHINE 2 MG/ML 1 ML VIAL IV ONE (11:45)
[2025-09-20] MEDS: PERCOCET 5MG/325MG TAB PO ONE (13:07)
[2025-09-20 13:22] VITALS: BP 159/105; O2SAT 99
[2025-09-20 13:34] VITALS: TEMP 98.3
== END 2025-09-20 13:35 | disposition home or self-care (01) ==
LOC: M ED 11:24 → EDBD 11:24 → M ED 13:35
DX: S49.91XA Unspecified injury of right shoulder and upper arm, initial encounter (principal); M54.2 Cervicalgia; W00.0XXA Fall on same level due to ice and snow, initial encounter; Y92.018 Other place in single-family (private) house as the place of occurrence of the external cause; Y93.89 Activity, other specified; Y99.9 Unspecified external cause status; I10 Essential (primary) hypertension; G43.909 Migraine, unspecified, not intractable, without status migrainosus; Z88.8 Allergy status to other drugs, medicaments and biological substances; Z79.899 Other long term (current) drug therapy; M50.322 Other cervical disc degeneration at C5-C6 level; M50.323 Other cervical disc degeneration at C6-C7 level; Z79.84 Long term (current) use of oral hypoglycemic drugs